=== PATIENT | female | born 2000 | race Caucasian/White ===

== ENCOUNTER 2023-02-16 15:02 | Emergency (ER) | payer OTHER, SELFPAY ==
[2023-02-16] VITALS (8 sets, daily range): BP systolic 112–133; BP diastolic 64–87; PULSE 66–76; RESP 16–23; TEMP 36.6; O2SAT 97–99; BMI 30.9
--- NOTE | 2023-02-16 15:23 | DI.RAD.S_ITS ---
PROCEDURE: XR CHEST 1V INDICATIONS: chest pain TECHNIQUE: One view of the chest was acquired. COMPARISON: None. FINDINGS: Surgical changes and devices: None. Lungs and pleura: Lungs are clear. No pleural effusions or pneumothorax. Mediastinum: Mediastinal contours appear normal. Heart size is normal. Bones and chest wall: No suspicious bony lesions. Overlying soft tissues appear unremarkable. IMPRESSION: No acute cardiopulmonary disease. Dictated by: Michelle Vanegas M.D. on 02/16/2023 at 16:36 Approved by: Michelle Vanegas M.D. on 02/16/2023 at 16:37
--- NOTE | 2023-02-16 15:56 | ED.CHESTPAIN ---
HPI - Chest Pain General Chief Complaint: Chest Pain Stated Complaint: chest pain (has pots) Time Seen by Provider: 02/16/23 15:30 Source: patient Mode of arrival: Ambulatory History of Present Illness HPI narrative: 22-year-old female admits to vaping and using marijuana with history of POTS states that she woke up with an elevated heart rate which is higher than her normal. It has been as high as the 120s, she is normally in the 60s or 70s and at most gets up into the 160s. She did have a near syncopal episode earlier when her HR was up to 160but did not hit her head. She has chest pain that comes and goes with a mind of its own, it is brief sharp and stabbing and LEs only a few minutes. She admits to being under increased stress lately therefore has not been sleeping as well as she would like to. Additionally she is been more active than normal and admits that she is had less oral intake than normal. She did drink some fluids on the way in ate salty foods knowing that this would likely help. Related Data Allergies Allergy/AdvReac Type Severity Reaction Status Date / Time No Known Drug Allergies Allergy Verified 02/16/23 15:17 Review of Systems Review of Systems Narrative: GENERAL: See HPI HEENT: Denies sinus pain, ear pain, sore throat, difficulty swallowing, dizziness. RESPIRATORY: Denies dyspnea, cough, wheezing, hemoptysis, sputum. CARDIOVASCULAR: See HPI GASTROINTESTINAL: Denies nausea, vomiting, abdominal pain, diarrhea, constipation, melena. : Denies dysuria, frequency, incontinence, hematuria, urinary retention. MUSCULOSKELETAL: denies weakness, joint pain, or bony pain SKIN: Denies rash, skin lesions, or other NEUROLOGIC: Denies weakness, headache, numbness, change in speech, confusion, seizures, incoordination. PSYCHIATRIC: No concerning psychosocial issues. 12 point review of systems is negative except for those stated above Patient History tobacco type: vaping Substance Use Type: marijuana Exam Narrative Exam Narrative: GENERAL: [22] year old patient appears stated age. Well-developed patient, in mild distress. HEAD: Atraumatic. Normocephalic. EYES: Pupils equal round and reactive. Extraocular motions intact. No scleral icterus. No injection or drainage. ENT: Nose without bleeding, purulent drainage. Throat without erythema, tonsillar hypertrophy or exudate. Airway patent. NECK: Trachea midline. Non tender CARDIOVASCULAR: Regular rate and rhythm without murmurs, gallops, or rubs. RESPIRATORY: Clear to auscultation. Breath sounds equal bilaterally. No wheezes, rales, or rhonchi. GASTROINTESTINAL: Abdomen soft, non-tender, nondistended. EXTREMITIES: No edema or joint tenderness. BACK: Nontender without deformity or crepitance. No flank tenderness. NEURO: AOx3. SKIN: No rash or erythema of visible areas Initial Vital Signs Initial Vital Signs: Vital Signs Temperature 97.9 F 02/16/23 15:17 Pulse Rate 66 02/16/23 15:17 Respiratory Rate 17 02/16/23 15:17 Blood Pressure 133/76 02/16/23 15:17 Pulse Oximetry 99 02/16/23 15:17 Oxygen Delivery Method Room Air 02/16/23 15:17 Course Orders Ordered: ED Orders 02/16/23 15:23 XR chest 1V Stat 02/16/23 15:31 EKG-12 Lead Stat 02/16/23 16:00 CRP [C-Reactive Protein Quant] Stat Complete Blood Count AUTO DIFF Stat Comprehensive Metabolic Panel Stat Lipase Stat Magnesium Stat PTT Partial Thromboplastin Tomas Stat Prothrombin Time INR Stat Troponin & CK Cardiac Panel Stat 02/16/23 17:35 D Dimer Stat ESR [Erythrocyte Sedimentation Rate] Stat Discontinued Medications Aspirin (Aspirin 81 Mg Chew Tab) 324 mg PO NOW ONE Stop: 02/16/23 15:24 Last Admin: 02/16/23 16:00 Dose: Not Given Documented By: NUPUR Sodium Chloride (Normal Saline 0.9%) 1,000 mls @ 1,000 mls/hr IV BOLUS ONE Stop: 02/16/23 17:00 Last Infusion: 02/16/23 17:16 Dose: 0 mls/hr Documented By: Admin: 02/16/23 16:04 Dose: 1,000 mls/hr Documented By: NUPUR Ketorolac Tromethamine (Ketorolac 30 Mg/Ml Vial) 15 mg IV NOW ONE Stop: 02/16/23 16:56 Last Admin: 02/16/23 17:01 Dose: 15 mg Documented By: PRASHANTH Vital Signs Vital signs: Vital Signs - 8 hr 02/16/23 15:17 02/16/23 15:36 02/16/23 15:43 Temperature 97.9 F Pulse Rate 66 76 70 Respiratory Rate 17 16 21 Blood Pressure 133/76 Pulse Oximetry 99 97 Oxygen Delivery Method Room Air 02/16/23 15:43 02/16/23 16:00 02/16/23 16:00 Temperature Pulse Rate 70 Respiratory Rate 23 Blood Pressure 122/87 128/74 Pulse Oximetry 97 Oxygen Delivery Method 02/16/23 16:30 02/16/23 16:30 02/16/23 17:00 Temperature Pulse Rate 71 Respiratory Rate 22 Blood Pressure 125/75 112/64 Pulse Oximetry 98 Oxygen Delivery Method 02/16/23 17:00 02/16/23 17:30 02/16/23 18:00 Temperature Pulse Rate 70 66 74 Respiratory Rate 21 22 19 Blood Pressure Pulse Oximetry 98 98 98 Oxygen Delivery Method MDM - Chest Pain Lab Data 02/16/23 16:00 02/16/23 16:00 Labs: Lab Results 02/16/23 02/16/23 02/16/23 Range/Units 16:00 16:00 16:00 WBC 8.3 (4.5-11.0) X10^3/uL RBC 4.47 (4.0-5.2) X10^6/uL Hgb 12.9 (12.0-16.0) g/dL Hct 38.6 (36-46) % MCV 86.3 (80-100) fL MCH 28.9 (26-34) PG MCHC 33.5 (30-36) % RDW 13.7 (11.6-14.8) % Plt Count 227 (150-400) X10^3/uL Neut % (Auto) 65.9 (50-75) % Lymph % (Auto) 26.1 (25-40) % [place] % (Auto) 6.1 (3-14) % Eos % (Auto) 1.3 L (2-4) % Baso % (Auto) 0.6 (0-2) % Neut # (Auto) 5500 (4504-6995) /uL Lymph # (Auto) 2200 (8940-5687) /uL [place] # (Auto) 500 (0-900) /uL Eos # (Auto) 100 (0-450) /uL Baso # (Auto) 100 (0-100) /uL ESR (0-20) MM/HR PT 11.3 (10.1-12.7) SECONDS INR 1.0 (0.9-1.3) APTT 28 (26-36) SECONDS D-Dimer (<500) ng/ml Sodium 138 (137-145) mmol/L Potassium 4.3 (3.4-5.1) mmol/L Chloride 106 (98-107) mmol/L Carbon Dioxide 26 (22-32) mmol/L BUN 15 (7-17) mg/dL Creatinine 0.70 (0.52-1.04) mg/dL Estimated GFR > 60 (>60) mL/min BUN/Creatinine Ratio 21.4 (6-22) Glucose 94 (70-100) mg/dL Calcium 9.1 (8.4-10.2) mg/dL Magnesium 2.1 (1.6-2.3) mg/dL Total Bilirubin 0.2 (0.2-1.3) mg/dL AST 24 (14-36) IU/L ALT 19 (<35) IU/L Alkaline Phosphatase 43 (38-126) U/L Total Creatine Kinase 100 (30-135) U/L Troponin I < 0.012 (0.01-0.034) ng/mL C-Reactive Protein (<1.0) mg/dL Total Protein 7.5 (6.3-8.2) g/dL Albumin 4.6 (3.5-5.0) g/dL Globulin 2.9 (1.7-4.1) g/dL Albumin/Globulin Ratio 1.6 (1.0-2.8) Lipase 113 (23-300) U/L 02/16/23 02/16/23 02/16/23 Range/Units 16:00 17:35 17:35 WBC (4.5-11.0) X10^3/uL RBC (4.0-5.2) X10^6/uL Hgb (12.0-16.0) g/dL Hct (36-46) % MCV (80-100) fL MCH (26-34) PG MCHC (30-36) % RDW (11.6-14.8) % Plt Count (150-400) X10^3/uL Neut % (Auto) (50-75) % Lymph % (Auto) (25-40) % [place] % (Auto) (3-14) % Eos % (Auto) (2-4) % Baso % (Auto) (0-2) % Neut # (Auto) (1172-6557) /uL Lymph # (Auto) (3631-1635) /uL [place] # (Auto) (0-900) /uL Eos # (Auto) (0-450) /uL Baso # (Auto) (0-100) /uL ESR 3 (0-20) MM/HR PT (10.1-12.7) SECONDS INR (0.9-1.3) APTT (26-36) SECONDS D-Dimer 215 (<500) ng/ml Sodium (137-145) mmol/L Potassium (3.4-5.1) mmol/L Chloride (98-107) mmol/L Carbon Dioxide (22-32) mmol/L BUN (7-17) mg/dL Creatinine (0.52-1.04) mg/dL Estimated GFR (>60) mL/min BUN/Creatinine Ratio (6-22) Glucose (70-100) mg/dL Calcium (8.4-10.2) mg/dL Magnesium (1.6-2.3) mg/dL Total Bilirubin (0.2-1.3) mg/dL AST (14-36) IU/L ALT (<35) IU/L Alkaline Phosphatase (38-126) U/L Total Creatine Kinase (30-135) U/L Troponin I (0.01-0.034) ng/mL C-Reactive Protein < 0.5 (<1.0) mg/dL Total Protein (6.3-8.2) g/dL Albumin (3.5-5.0) g/dL Globulin (1.7-4.1) g/dL Albumin/Globulin Ratio (1.0-2.8) Lipase (23-300) U/L Point of Care Testing Test Results Negative Urine Dip Bedside Urine Glucose Negative Bedside Urine Bilirubin - Negative Bedside Urine Ketone - Negative Urine Specific [place] 1.000 Bedside Urine Occult Blood - Negative Bedside Urine pH 7.0 Bedside Urine Protein - Negative Bedside Urine Urobilinogen - Negative Bedside Urine Nitrite - Negative Bedside Urine Leukocytes - Negative Esterase ECG Data Interpretation: [time] EKG is normal sinus rhythm rate [ 70] and free of any signs of ischemia or ectopy. No ST segmental elevation or depression. No T wave inversions MDM Narrative Medical decision making narrative: CC: 22-year-old female with Villegas presents with a rapid heart rate upon waking today and a few episodes of sharp and stabbing chest pain Complicating co-morbidities: Factor 5 [place], pots Data collected from: Patient Medical records reviewed: Prior notes reviewed in our EMR Differential considered, but not limited to: Cardiac ischemia versus pulmonary embolism versus tachyarrhythmia versus dehydration versus other Exam documented above, pertinent findings include: Heart rate regular, lungs clear, no reproducible pain Lab Test results independently reviewed as above. Pertinent findings: No leukocytosis or anemia, electrolytes within normal limit, troponin negative and D-dimer below cutoff Independently reviewed EKG as above Imaging studies independently reviewed: Chest x-ray demonstrates no acute process Discussion: 22-year-old female awoke with rapid heart rate that resolved over the course of the day. She is had a few episodes of sharp and stabbing chest pain without obvious provocation or palliation, no exertional symptoms, nonocclusive EKG and negative troponin. D-dimer ordered to rule out pulmonary embolism given her history of factor 5 and tachycardia, thankfully does below the cutoff and no CTA is needed. It seems likely that her symptoms are multifactorial. She admits to increased stress lately which is [place] to poor appetite and oral intake, relative dehydration, poor sleep. Symptoms improved after above-stated therapies. Return precautions discussed and questions answered to her apparent satisfaction Disposition: see below, along with detailed discharge instructions that have been reviewed with patient as well as indications for ED re-evaluation and additional outpatient follow up Discharge Plan Departure Patient Disposition: Home Clinical Impression: POTS (postural orthostatic tachycardia syndrome), Atypical chest pain Instructions: DI for Atypical Chest Pain Activity Restrictions/Additional Instructions: *You have been diagnosed with [ atypical chest pain. As we discussed your history and physical exam are reassuring as our your labs. There is no sign of heart attack, blood clot or significant electrolyte abnormality. As we discussed your symptoms could very well have been triggered by some recent increased stress, less sleep than normal and perhaps some relative dehydration. I am glad you are feeling better now] *What to do: *Please continue to take your regular medications as directed. [ ] New medication prescriptions sent to your pharmacy: [ ] [ ] New medication written as a paper prescription [ ] No new medications given *Please follow up with your primary care provider in 2-3 days, call for an appointment. Let them know you were seen in the Emergency Department and that we ask that you be seen in follow up. We will electronically transmit a record of today's note if your PCP is in our system Return to Emergency Department if you should have any new, worsening or concerning symptoms, such as [fever greater than 101 F, shaking chills, worsening pain, persistent vomiting or other bothersome symptoms] Referrals: Cherelle George MD [Primary Care Provider] - Stand Alone Forms: Patient Portal/API
[2023-02-16] MEDS: SODIUM CHLORIDE 0.9% 1,000 ML 1000 ML IV (16:04)
--- NOTE | 2023-02-16 16:04 | PC.NURSE ---
Patient states she is dehydrated and had been feeling nauseous this morning so did not drink enough water. She reports her heart rate was 120 while standing and 160bpm with exertion before coming. I stood the patient up at the bedside and her heart rate remained steady at 73bPM with mild rise to 80's momentarily. No active chest pain. Reports mild dizziness. She states the drank a bunch of water and ate some saltines before coming and feels improved. Requests IV fluids. Verbal order from Dr. Chavarria for 1L normal saline.
[2023-02-16 16:08] LABS: Add Manual Diff / Slide Review NO; Basophils Absolute Auto 100 /uL (0-100); Basophils Percent Auto 0.6 % (0-2); Eosinophils Absolute Auto 100 /uL (0-450); Eosinophils Percent Auto 1.3 % (2-4); Hematocrit 38.6 % (36-46); Hemoglobin 12.9 g/dL (12.0-16.0); Lymphocytes Absolute Auto 2200 /uL (1100-4500); Lymphocytes Percent Auto 26.1 % (25-40); Mean Corpuscular HGB Conc 33.5 % (30-36); Mean Corpuscular Hemoglobin 28.9 PG (26-34); Mean Corpuscular Volume 86.3 fL (80-100); Monocytes Absolute Auto 500 /uL (0-900); Monocytes Percent Auto 6.1 % (3-14); Neutrophils Absolute Auto 5500 /uL (1500-7000); Neutrophils Percent Auto 65.9 % (50-75); Platelet Count 227 X10^3/uL (150-400); Red Blood Cell Count 4.47 X10^6/uL (4.0-5.2); Red Cell Distribution Width 13.7 % (11.6-14.8); White Blood Cell Count 8.3 X10^3/uL (4.5-11.0)
[2023-02-16 16:12] LABS: Prothrombin Time 11.3 SECONDS (10.1-12.7)
[2023-02-16 16:15] LABS: PTT Partial Thromboplastin Tim 28 SECONDS (26-36)
[2023-02-16 16:17] LABS: Alanine Aminotransferase 19 IU/L (<35); Albumin 4.6 g/dL (3.5-5.0); Albumin Globulin Ratio 1.6 (1.0-2.8); Alkaline Phosphatase 43 U/L (38-126); Aspartate Aminotransferase 24 IU/L (14-36); BUN Creatinine Ratio 21.4 (6-22); Bilirubin Total 0.2 mg/dL (0.2-1.3); Blood Urea Nitrogen 15 mg/dL (7-17); Calcium 9.1 mg/dL (8.4-10.2); Carbon Dioxide 26 mmol/L (22-32); Chloride 106 mmol/L (98-107); Creatine Kinase 100 U/L (30-135); Estimated Glomerular Filt Rate > 60 mL/min (>60); Globulin 2.9 g/dL (1.7-4.1); Glucose 94 mg/dL (70-100); HEMOLYSIS < 15 (0-50); Lipase 113 U/L (23-300); Magnesium 2.1 mg/dL (1.6-2.3); Potassium 4.3 mmol/L (3.4-5.1); Sodium 138 mmol/L (137-145); Total Protein 7.5 g/dL (6.3-8.2)
[2023-02-16 16:30] LABS: Troponin I < 0.012 ng/mL (0.01-0.034)
[2023-02-16] MEDS: KETOROLAC 30 MG/ML VIAL 15 MG IV (17:01)
--- NOTE | 2023-02-16 17:19 | PC.NURSE ---
Pt used call light to inform us that her chest pain returned along with a headache. RT was called for a repeat EKG, patients HR on the monitor was 74, sinus rhythm. Provider informed and patient received pain medications. 10 minutes later patient states her chest pain is gone after ambulating to the bathroom. Headache persists but is less than initial onset. Lights were dimmed and patient resting in bed. [facility]
[2023-02-16 17:38] LABS: C-Reactive Protein Quant < 0.5 mg/dL (<1.0)
[2023-02-16 17:56] LABS: D Dimer 215 ng/ml (<500)
--- NOTE | 2023-02-16 18:13 | PC.NURSE ---
Denies dizziness while ambulating states she feels much better after the fluids.
[2023-02-16 18:16] LABS: Erythrocyte Sedimentation Rate 3 MM/HR (0-20)
== END 2023-02-16 18:14 | disposition home or self-care (01) ==
PROVIDERS: Emergency Provider Emergency Medicine; PCP Family Medicine
DX: G90.A Postural orthostatic tachycardia syndrome [POTS] (principal); R07.89 Other chest pain; R55 Syncope and collapse
CPT/HCPCS: 36415; 71045; 80053; 81003; 81025; 82550; 83690; 83735; 84484; 85025; 85379; 85610; 85651; 85730; 86140; 93005; 93010; 96374; 99284; J1885

== ENCOUNTER 2023-02-18 22:42 | Emergency (ER) | payer OTHER, SELFPAY ==
[2023-02-18 22:55] VITALS: BP 128/76; PULSE 79; RESP 16; O2SAT 98; BMI 30.9
[2023-02-18 23:23] LABS: Add Manual Diff / Slide Review NO; Basophils Absolute Auto 100 /uL (0-100); Basophils Percent Auto 0.6 % (0-2); Eosinophils Absolute Auto 100 /uL (0-450); Eosinophils Percent Auto 0.8 % (2-4); Hematocrit 38.2 % (36-46); Lymphocytes Absolute Auto 2800 /uL (1100-4500); Lymphocytes Percent Auto 25.9 % (25-40); Mean Corpuscular Volume 85.3 fL (80-100); Monocytes Absolute Auto 600 /uL (0-900); Monocytes Percent Auto 5.6 % (3-14); Neutrophils Absolute Auto 7300 /uL (1500-7000); Neutrophils Percent Auto 67.1 % (50-75); Platelet Count 240 X10^3/uL (150-400); Red Blood Cell Count 4.47 X10^6/uL (4.0-5.2); Red Cell Distribution Width 13.7 % (11.6-14.8); White Blood Cell Count 10.9 X10^3/uL (4.5-11.0)
[2023-02-18 23:33] LABS: Alanine Aminotransferase 20 IU/L (<35); Albumin 4.9 g/dL (3.5-5.0); Albumin Globulin Ratio 1.5 (1.0-2.8); Alkaline Phosphatase 47 U/L (38-126); Aspartate Aminotransferase 28 IU/L (14-36); BUN Creatinine Ratio 18.3 (6-22); Bilirubin Total 0.3 mg/dL (0.2-1.3); Blood Urea Nitrogen 17 mg/dL (7-17); Calcium 9.4 mg/dL (8.4-10.2); Carbon Dioxide 24 mmol/L (22-32); Chloride 105 mmol/L (98-107); Estimated Glomerular Filt Rate > 60 mL/min (>60); Globulin 3.2 g/dL (1.7-4.1); Glucose 90 mg/dL (70-100); HEMOLYSIS < 15 (0-50); Lipase 98 U/L (23-300); Potassium 4.1 mmol/L (3.4-5.1); Sodium 138 mmol/L (137-145); Total Protein 8.1 g/dL (6.3-8.2)
[2023-02-19] MEDS: ONDANSETRON 4 MG/2 ML INJ IV (01:04)
--- NOTE | 2023-02-19 01:06 | ED.NAVMDI ---
HPI - Nausea/Vomiting/Diarrhea General Chief complaint: Nausea/Vomiting/Diarrhea Stated complaint: states vomiting blood Time Seen by Provider: 02/19/23 01:05 Source: patient Mode of arrival: Ambulatory History of Present Illness HPI Narrative: 22-year-old woman with a history of possible POTS syndrome, prior history of PANDAS awoke feeling ?crummy? this morning decreased appetite. She had an episode of diarrhea and at 6:00 p.m. and episode of vomiting. She does have recurrent episodes of strep throat. She describes no fevers but has been chilly and sweaty throughout the day. She has some mild epigastric pain no lower abdominal tenderness. Notes occasional tightness through her chest particularly after emesis. Related Data Previous Rx's Medication Instructions Recorded ondansetron 4 mg disintegrating 4 mg PO Q8H PRN nausea and 02/19/23 tablet vomiting #20 tabs Allergies Allergy/AdvReac Type Severity Reaction Status Date / Time No Known Drug Allergies Allergy Verified 02/16/23 15:17 Review of Systems Review of Systems Narrative: Pertinent positive and negative findings as per HPI Patient History Social History Smoking Status: Current every day smoker Smoking Status: Current every day smoker tobacco type: cigarettes and vaping Substance Use Type: marijuana Exam Initial Vital Signs Initial Vital Signs: Vital Signs Pulse Rate 79 02/18/23 22:55 Respiratory Rate 16 02/18/23 22:55 Blood Pressure 128/76 02/18/23 22:55 Pulse Oximetry 98 02/18/23 22:55 Oxygen Delivery Method Room Air 02/18/23 22:55 General: Healthy appearing, in no acute distress but does appear moderately uncomfortable. Able to give a complete and coherent history. Well-nourished well-developed HEENT: Moist mucous membranes, normal sclera with reactive pupils, tonsils are inflamed with mild excoriation and bleeding but no overt exudate Neck: No cervical adenopathy, supple Respiratory: Lungs are clear to auscultation, no wheezing no rales no rhonchi. Full and symmetrical air movement Cardiac: Regular rate and rhythm no murmurs no bruits Abdomen: Soft, mild midepigastric tenderness without rebound or guarding, good bowel tones, no flank pain Skin: Warm and dry, no rashes Neurologic: Grossly neurologically intact with no obvious asymmetries or abnormalities Extremities: No trauma, well perfused Psych: Cooperative, appropriate insight and affect Course Orders Ordered: ED Orders 02/18/23 23:13 Complete Blood Count AUTO DIFF Stat Comprehensive Metabolic Panel Stat Lipase Stat 02/19/23 01:30 Strep Grp A by PCR Rapid Stat Ondansetron HCl (Ondansetron 4 Mg Odt) 4 mg PO NOW PRN PRN Reason: Nausea And Vomiting Ondansetron HCl (Ondansetron 4 Mg/2 Ml Inj) 4 mg IV NOW PRN PRN Reason: Nausea And Vomiting Last Admin: 02/19/23 01:04 Dose: 4 mg Documented By: LINNEA Discontinued Medications Sodium Chloride (Normal Saline 0.9%) 1,000 mls @ 1,000 mls/hr IV BOLUS ONE Stop: 02/19/23 02:04 Last Infusion: 02/19/23 02:29 Dose: 0 mls/hr Documented By: Admin: 02/19/23 01:36 Dose: 1,000 mls/hr Documented By: JAEL Vital Signs Vital signs: Vital Signs - 8 hr 02/18/23 22:55 02/19/23 01:22 02/19/23 01:22 Pulse Rate 79 72 Respiratory Rate 16 Blood Pressure 128/76 129/72 Pulse Oximetry 98 97 Oxygen Delivery Method Room Air Room Air 02/19/23 01:30 02/19/23 01:30 02/19/23 02:00 Pulse Rate 64 Respiratory Rate Blood Pressure 126/60 115/59 L Pulse Oximetry 99 Oxygen Delivery Method Room Air 02/19/23 02:00 Pulse Rate 55 L Respiratory Rate Blood Pressure Pulse Oximetry 97 Oxygen Delivery Method Room Air MDM - Nausea/Vomiting/Diarrhea Lab Data 02/18/23 23:13 02/18/23 23:13 Labs: Lab Results 02/18/23 02/18/23 02/19/23 Range/Units 23:13 23:13 01:30 WBC 10.9 (4.5-11.0) X10^3/uL RBC 4.47 (4.0-5.2) X10^6/uL Hgb 13.0 (12.0-16.0) g/dL Hct 38.2 (36-46) % MCV 85.3 (80-100) fL MCH 29.0 (26-34) PG MCHC 34.0 (30-36) % RDW 13.7 (11.6-14.8) % Plt Count 240 (150-400) X10^3/uL Neut % (Auto) 67.1 (50-75) % Lymph % (Auto) 25.9 (25-40) % [place] % (Auto) 5.6 (3-14) % Eos % (Auto) 0.8 L (2-4) % Baso % (Auto) 0.6 (0-2) % Neut # (Auto) 7300 H (7966-3956) /uL Lymph # (Auto) 2800 (6052-5227) /uL [place] # (Auto) 600 (0-900) /uL Eos # (Auto) 100 (0-450) /uL Baso # (Auto) 100 (0-100) /uL Sodium 138 (137-145) mmol/L Potassium 4.1 (3.4-5.1) mmol/L Chloride 105 (98-107) mmol/L Carbon Dioxide 24 (22-32) mmol/L BUN 17 (7-17) mg/dL Creatinine 0.93 (0.52-1.04) mg/dL Estimated GFR > 60 (>60) mL/min BUN/Creatinine Ratio 18.3 (6-22) Glucose 90 (70-100) mg/dL Calcium 9.4 (8.4-10.2) mg/dL Total Bilirubin 0.3 (0.2-1.3) mg/dL AST 28 (14-36) IU/L ALT 20 (<35) IU/L Alkaline Phosphatase 47 (38-126) U/L Total Protein 8.1 (6.3-8.2) g/dL Albumin 4.9 (3.5-5.0) g/dL Globulin 3.2 (1.7-4.1) g/dL Albumin/Globulin Ratio 1.5 (1.0-2.8) Lipase 98 (23-300) U/L Group A Strep (PCR) Negative (Negative) Point of Care Testing Test Results Negative Urine Dip Bedside Urine Glucose Negative Bedside Urine Bilirubin - Negative Bedside Urine Ketone - Negative Urine Specific [place] 1.030 Bedside Urine Occult Blood - Negative Bedside Urine pH 6.0 Bedside Urine Protein - Negative Bedside Urine Urobilinogen - Negative Bedside Urine Nitrite - Negative Bedside Urine Leukocytes - Negative Esterase MDM Narrative Medical decision making narrative: CC: Vomiting and diarrhea Complicating co-morbidities: Possible POTS diagnosis, PTSD, prior PANDAS, recurrent strep throat Data collected from: patient, Social determinants of health that may influence the patients condition: Medical records reviewed: She was seen and evaluated here on February 16 with atypical chest pain Differential considered: Viral syndrome, anxiety, gastritis. appendicitis, pelvic inflammatory disease, bowel obstruction all are felt to be less likely Exam documented above, pertinent findings include: Fairly benign exam, mild midepigastric pain Lab Test results independently reviewed as above. Pertinent findings: CBC is unremarkable Chemistries are reassuring Rapid strep is negative Urine test is negative Treatments: IV Zofran Discussion: 22-year-old woman with nausea vomiting and diarrhea. Unremarkable labs, unremarkable exam. Feeling better after Zofran and fluids. At this point there is no evidence of acute abdominal pathology, electrolyte abnormalities, kidney failure, strep throat or other infectious etiology. I suspect she has a viral gastroenteritis. Findings reviewed with her and she is safe for discharge home Discharge Plan Departure Patient Disposition: Home Clinical Impression: Nausea vomiting and diarrhea Instructions: DI for Viral Gastroenteritis -- Adult Activity Restrictions/Additional Instructions: Thank you for coming in tonight Your workup is quite reassuring. Your lab work and exam are benign. He do not have strep throat you are not . Responded nicely to fluids and Zofran. I suspect that you have a mild virus that is causing both vomiting and diarrhea. This should run its course. I have given you a prescription for Zofran to use to help control the nausea so that you can maintain hydration. If you find that you are getting worse or develop any new symptoms, please feel free to return to the emergency department for further evaluation. Prescriptions: New ondansetron 4 mg tablet,disintegrating 4 mg PO Q8H PRN (Reason: nausea and vomiting) Qty: 20 0RF Referrals: Cherelle George MD [Primary Care Provider] - Stand Alone Forms: Patient Portal/API
[2023-02-19 01:22] VITALS: BP 129/72; PULSE 72; O2SAT 97
[2023-02-19 01:30] VITALS: BP 126/60; PULSE 64; O2SAT 99
[2023-02-19] MEDS: SODIUM CHLORIDE 0.9% 1,000 ML 1000 ML IV (01:36)
[2023-02-19 01:44] LABS: Strep Grp A by PCR Rapid Negative (Negative)
[2023-02-19 02:00] VITALS: BP 115/59; PULSE 55; O2SAT 97
[2023-02-19 02:30] VITALS: BP 116/64; PULSE 68; O2SAT 99
[2023-02-19 03:00] VITALS: BP 113/66; PULSE 63; O2SAT 97
[2023-02-19 03:30] VITALS: BP 107/57; PULSE 68; O2SAT 95
== END 2023-02-19 04:10 | disposition home or self-care (01) ==
PROVIDERS: Emergency Provider Emergency Medicine; PCP Family Medicine
DX: R11.2 Nausea with vomiting, unspecified (principal); R19.7 Diarrhea, unspecified
CPT/HCPCS: 36415; 80053; 81003; 81025; 83690; 85025; 87651; 96361; 96374; 99284; J2405

== ENCOUNTER 2023-02-23 15:58 | Emergency (ER) | payer OTHER, SELFPAY ==
[2023-02-23 16:00] VITALS: BP 131/76; PULSE 90; RESP 18; TEMP 36.7; O2SAT 99; BMI 30.9
[2023-02-23] MEDS: ONDANSETRON 4 MG/2 ML INJ IV (16:21)
[2023-02-23 16:28] LABS: Add Manual Diff / Slide Review NO; Basophils Absolute Auto 0 /uL (0-100); Basophils Percent Auto 0.3 % (0-2); Eosinophils Absolute Auto 100 /uL (0-450); Eosinophils Percent Auto 1.6 % (2-4); Hematocrit 37.9 % (36-46); Lymphocytes Absolute Auto 1900 /uL (1100-4500); Lymphocytes Percent Auto 23.5 % (25-40); Mean Corpuscular HGB Conc 34.3 % (30-36); Mean Corpuscular Hemoglobin 29.4 PG (26-34); Mean Corpuscular Volume 85.7 fL (80-100); Monocytes Absolute Auto 600 /uL (0-900); Monocytes Percent Auto 7.3 % (3-14); Neutrophils Absolute Auto 5300 /uL (1500-7000); Neutrophils Percent Auto 67.3 % (50-75); Platelet Count 205 X10^3/uL (150-400); Red Blood Cell Count 4.42 X10^6/uL (4.0-5.2); Red Cell Distribution Width 13.6 % (11.6-14.8); White Blood Cell Count 7.9 X10^3/uL (4.5-11.0)
[2023-02-23 17:01] LABS: Alanine Aminotransferase 19 IU/L (<35); Albumin 4.5 g/dL (3.5-5.0); Albumin Globulin Ratio 1.5 (1.0-2.8); Alkaline Phosphatase 45 U/L (38-126); Aspartate Aminotransferase 24 IU/L (14-36); BUN Creatinine Ratio 25.4 (6-22); Bilirubin Total 0.2 mg/dL (0.2-1.3); Blood Urea Nitrogen 17 mg/dL (7-17); Calcium 8.7 mg/dL (8.4-10.2); Carbon Dioxide 25 mmol/L (22-32); Chloride 104 mmol/L (98-107); Estimated Glomerular Filt Rate > 60 mL/min (>60); Glucose 110 mg/dL (70-100); HEMOLYSIS 22 (0-50); Lipase 118 U/L (23-300); Potassium 4.1 mmol/L (3.4-5.1); Sodium 136 mmol/L (137-145); Total Protein 7.5 g/dL (6.3-8.2)
--- NOTE | 2023-02-23 18:04 | ED.ABDPAIN ---
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 Patient was seen in the ED last week, diagnosed with viral gastroenteritis, sent home with supportive care and prescription for Zofran. Patient states that she has been unable to fill her Zofran prescription due to her insurance issues. Patient states that she was getting better over the last week, however started feeling nauseous and was vomiting again from yesterday on. Patient endorses nausea, vomiting, continued diarrhea. Patient also complains of some abdominal cramping in the left upper quadrant and epigastric regions. Patient denies fever, chills, chest pain, shortness of breath, dysuria, lightheadedness, dizziness, syncope. Related Data Previous Rx's Medication Instructions Recorded ondansetron 4 mg disintegrating 4 mg PO Q8H PRN nausea and 02/19/23 tablet vomiting #20 tabs ondansetron 4 mg disintegrating 4 mg PO Q8H PRN nausea and 02/23/23 tablet vomiting #14 tabs Allergies Allergy/AdvReac Type Severity Reaction Status Date / Time No Known Drug Allergies Allergy Verified 02/23/23 16:04 Review of Systems <Tatiana Romero PA-C - Last Filed: 02/23/23 18:22> Review of Systems ROS Unobtainable: All systems reviewed & are unremarkable except as noted in HPI and below Constitutional Constitutional: Denies chills, Denies fatigue, Denies fever(s), Denies frequent falls, Denies lethargy and Denies weakness Eyes Eyes: Denies change in vision, Denies eye discharge, Denies irritation and Denies loss of vision ENT Ears, Nose, Mouth, and Throat: Denies change in voice, Denies dizziness, Denies neck pain, Denies sore throat and Denies throat swelling Cardiovascular Cardiovascular: Denies chest pain, Denies irregular heart rhythm, Denies lightheadedness, Denies palpitations, Denies dyspnea, Denies dyspnea on exertion and Denies orthopnea Respiratory Respiratory: Denies cough, Denies dyspnea, Denies dyspnea on exertion and Denies wheezing Gastrointestinal Gastrointestinal: Reports abdominal pain, Denies change in bowel habits, Reports diarrhea, Reports nausea and Reports vomiting Genitourinary Genitourinary: Denies hematuria, Denies flank pain, Denies urinary incontinence and Denies urinary urgency Musculoskeletal Musculoskeletal: Denies back pain, Denies muscle weakness, Denies neck pain, Denies numbness and Denies tingling Integumentary/Breasts Skin/Breast: Denies pruritus, Denies erythema, Denies rash and Denies wounds Neurologic Neurologic: Denies behavioral changes, Denies confusion, Denies dizziness, Denies frequent falls, Denies loss of vision, Denies numbness, Denies tingling and Denies weakness Psychiatric Psychiatric: Denies anxiety, Denies behavioral changes, Denies confusion, Denies depression, Denies homicidal ideation and Denies suicidal ideation Endocrine Endocrine: Denies fatigue, Denies flushing and Denies palpitations Hematologic/Lymphatic Hematologic/Lymphatic: Denies easy bruising Allergic/Immunologic Allergic/Immunologic: Denies urticaria, Denies throat swelling and Denies wheezing Patient History <Tatiana Romero PA-C - Last Filed: 02/23/23 18:22> Social History Smoking Status: Current every day smoker Smoking Status: Current every day smoker tobacco type: cigarettes and vaping Substance Use Type: marijuana Exam <Tatiana Romero PA-C - Last Filed: 02/23/23 18:22> Narrative Exam Narrative: Const General:?cooperative, healthy appearing and comfortable [facility] Head:?normal to inspection Ears:?hearing grossly normal bilaterally Nose:?external nose normal Face and sinus:?normal facial exam and sinuses nontender Mouth:?oral mucosae normal Throat:?posterior oropharynx normal Eyes General:?appearance normal, both eyes and all related structures Neck Neck:?normal visual inspection and no lymphadenopathy noted Resp Effort & Inspection:?normal respiratory effort Auscultation:?clear to auscultation bilaterally Cardio Rate:?regular rate Rhythm:?regular rhythm GI Abdomen is soft, nondistended, nontender to palpation. There is no CVA tenderness. Neuro General:?patient alert, patient awake and patient oriented x3 Initial Vital Signs Initial Vital Signs: Vital Signs Temperature 98.1 F 02/23/23 16:00 Pulse Rate 90 02/23/23 16:00 Respiratory Rate 18 02/23/23 16:00 Blood Pressure 131/76 02/23/23 16:00 Pulse Oximetry 99 02/23/23 16:00 Oxygen Delivery Method Room Air 02/23/23 16:00 <DO Eduardo Sosa Last Filed: 02/24/23 08:04> Initial Vital Signs Initial Vital Signs: Vital Signs Temperature 98.1 F 02/23/23 16:00 Pulse Rate 90 02/23/23 16:00 Respiratory Rate 18 02/23/23 16:00 Blood Pressure 131/76 02/23/23 16:00 Pulse Oximetry 99 02/23/23 16:00 Oxygen Delivery Method Room Air 02/23/23 16:00 Course <Tatiana Romero PA-C - Last Filed: 02/23/23 18:22> Orders Ordered: Discontinued Medications Ondansetron HCl (Ondansetron 4 Mg/2 Ml Inj) 4 mg IV NOW PRN PRN Reason: Nausea And Vomiting Last Admin: 02/23/23 16:21 Dose: 4 mg Documented By: JHONNY Vital Signs Vital signs: Vital Signs - 8 hr 02/23/23 16:00 Temperature 98.1 F Pulse Rate 90 Respiratory Rate 18 Blood Pressure 131/76 Pulse Oximetry 99 Oxygen Delivery Method Room Air <DO Eduardo Sosa Last Filed: 02/24/23 08:04> Orders Ordered: Discontinued Medications Ondansetron HCl (Ondansetron 4 Mg/2 Ml Inj) 4 mg IV NOW PRN PRN Reason: Nausea And Vomiting Last Admin: 02/23/23 16:21 Dose: 4 mg Documented By: JHONNY Vital Signs Vital signs: Vital Signs - 8 hr 02/23/23 16:00 Temperature 98.1 F Pulse Rate 90 Respiratory Rate 18 Blood Pressure 131/76 Pulse Oximetry 99 Oxygen Delivery Method Room Air MDM - Abdominal Pain <Tatiana Romero PA-C - Last Filed: 02/23/23 18:22> Lab Data 02/23/23 16:14 02/23/23 16:14 Labs: Lab Results 02/23/23 02/23/23 02/23/23 Range/Units 16:14 16:14 17:55 WBC 7.9 (4.5-11.0) X10^3/uL RBC 4.42 (4.0-5.2) X10^6/uL Hgb 13.0 (12.0-16.0) g/dL Hct 37.9 (36-46) % MCV 85.7 (80-100) fL MCH 29.4 (26-34) PG MCHC 34.3 (30-36) % RDW 13.6 (11.6-14.8) % Plt Count 205 (150-400) X10^3/uL Neut % (Auto) 67.3 (50-75) % Lymph % (Auto) 23.5 L (25-40) % [place] % (Auto) 7.3 (3-14) % Eos % (Auto) 1.6 L (2-4) % Baso % (Auto) 0.3 (0-2) % Neut # (Auto) 5300 (6663-5675) /uL Lymph # (Auto) 1900 (4095-5183) /uL [place] # (Auto) 600 (0-900) /uL Eos # (Auto) 100 (0-450) /uL Baso # (Auto) 0 (0-100) /uL Sodium 136 L (137-145) mmol/L Potassium 4.1 (3.4-5.1) mmol/L Chloride 104 (98-107) mmol/L Carbon Dioxide 25 (22-32) mmol/L BUN 17 (7-17) mg/dL Creatinine 0.67 (0.52-1.04) mg/dL Estimated GFR > 60 (>60) mL/min BUN/Creatinine Ratio 25.4 H (6-22) Glucose 110 H (70-100) mg/dL Calcium 8.7 (8.4-10.2) mg/dL Total Bilirubin 0.2 (0.2-1.3) mg/dL AST 24 (14-36) IU/L ALT 19 (<35) IU/L Alkaline Phosphatase 45 (38-126) U/L Total Protein 7.5 (6.3-8.2) g/dL Albumin 4.5 (3.5-5.0) g/dL Globulin 3.0 (1.7-4.1) g/dL Albumin/Globulin Ratio 1.5 (1.0-2.8) Lipase 118 (23-300) U/L Urine RBC None seen (0-5/HPF) Urine WBC None seen (0-5/HPF) Ur Squamous Epith Cells 1-5 /hpf (0-5/HPF) Urine Bacteria Few (2-10) H (None) Point of care testing: Point of Care Testing Test Results Negative Urine Dip Bedside Urine Glucose Negative Bedside Urine Bilirubin - Negative Bedside Urine Ketone - Negative Urine Specific [place] 1.000 Bedside Urine Occult Blood +++ Bedside Urine pH 7.0 Bedside Urine Protein - Negative Bedside Urine Urobilinogen - Negative Bedside Urine Nitrite - Negative Bedside Urine Leukocytes - Negative Esterase MDM Narrative Medical decision making narrative: 22-year-old female with past medical history pots syndrome presents to the ED with nausea, vomiting, diarrhea for 1 week. Physical exam is reassuring for a benign abdomen. Patient's symptoms are likely due to the viral gastroenteritis. Patient's nausea was well controlled with Zofran in the ED. will give patient a written prescription that she can take to a pharmacy that will be able to dispense the medication for her. Recommend supportive care with continued good hydration, BRAT diet. ED return precautions were discussed with patient. Patient verbalized understanding. Medical records reviewed: Yes <Lyssa Platt, - Last Filed: 02/24/23 08:04> Lab Data Labs: Lab Results 02/23/23 02/23/23 02/23/23 Range/Units 16:14 16:14 17:55 WBC 7.9 (4.5-11.0) X10^3/uL RBC 4.42 (4.0-5.2) X10^6/uL Hgb 13.0 (12.0-16.0) g/dL Hct 37.9 (36-46) % MCV 85.7 (80-100) fL MCH 29.4 (26-34) PG MCHC 34.3 (30-36) % RDW 13.6 (11.6-14.8) % Plt Count 205 (150-400) X10^3/uL Neut % (Auto) 67.3 (50-75) % Lymph % (Auto) 23.5 L (25-40) % [place] % (Auto) 7.3 (3-14) % Eos % (Auto) 1.6 L (2-4) % Baso % (Auto) 0.3 (0-2) % Neut # (Auto) 5300 (5050-4457) /uL Lymph # (Auto) 1900 (7114-8695) /uL [place] # (Auto) 600 (0-900) /uL Eos # (Auto) 100 (0-450) /uL Baso # (Auto) 0 (0-100) /uL Sodium 136 L (137-145) mmol/L Potassium 4.1 (3.4-5.1) mmol/L Chloride 104 (98-107) mmol/L Carbon Dioxide 25 (22-32) mmol/L BUN 17 (7-17) mg/dL Creatinine 0.67 (0.52-1.04) mg/dL Estimated GFR > 60 (>60) mL/min BUN/Creatinine Ratio 25.4 H (6-22) Glucose 110 H (70-100) mg/dL Calcium 8.7 (8.4-10.2) mg/dL Total Bilirubin 0.2 (0.2-1.3) mg/dL AST 24 (14-36) IU/L ALT 19 (<35) IU/L Alkaline Phosphatase 45 (38-126) U/L Total Protein 7.5 (6.3-8.2) g/dL Albumin 4.5 (3.5-5.0) g/dL Globulin 3.0 (1.7-4.1) g/dL Albumin/Globulin Ratio 1.5 (1.0-2.8) Lipase 118 (23-300) U/L Urine RBC None seen (0-5/HPF) Urine WBC None seen (0-5/HPF) Ur Squamous Epith Cells 1-5 /hpf (0-5/HPF) Urine Bacteria Few (2-10) H (None) Point of care testing: Point of Care Testing Test Results Negative Urine Dip Bedside Urine Glucose Negative Bedside Urine Bilirubin - Negative Bedside Urine Ketone - Negative Urine Specific [place] 1.000 Bedside Urine Occult Blood +++ Bedside Urine pH 7.0 Bedside Urine Protein - Negative Bedside Urine Urobilinogen - Negative Bedside Urine Nitrite - Negative Bedside Urine Leukocytes - Negative Esterase Discharge Plan Departure Patient Disposition: Home Clinical Impression: Gastroenteritis Instructions: DI for Viral Gastroenteritis -- Adult Activity Restrictions/Additional Instructions: You were evaluated in the ED today for nausea, vomiting. Your symptoms are likely due to the viral gastroenteritis. Your symptoms are well controlled with Zofran in the ED. You are being prescribed Zofran for continued use over the next few days. Please continue to stay well hydrated, followed the BRAT diet which consists of bananas, rice, apples, toast. Return to the ED if you are persistently vomiting, are unable to keep down solids and liquids. Prescriptions: New ondansetron 4 mg tablet,disintegrating 4 mg PO Q8H PRN (Reason: nausea and vomiting) Qty: 14 0RF No Action ondansetron 4 mg tablet,disintegrating 4 mg PO Q8H PRN (Reason: nausea and vomiting) Qty: 20 0RF Referrals: Cherelle George MD [Primary Care Provider] - Stand Alone Forms: Patient Portal/API <Lyssa Platt DO - Last Filed: 02/24/23 08:04> Cosign ED Attending Ross Attestation: I was immediately available in the department for consultation. Documentation has been reviewed.
[2023-02-23 18:19] VITALS: BP 128/72; PULSE 88; RESP 14; O2SAT 98
[2023-02-23 18:39] LABS: Bacteria Urine Few (2-10); RBC Urine None Seen (0-5/HPF); Squamous Epithelial Cell Urine 1-5 /HPF (0-5/HPF); WBC Urine None Seen (0-5/HPF)
== END 2023-02-23 18:22 | disposition home or self-care (01) ==
PROVIDERS: Emergency Medicine; Emergency Provider Student in an Organized Health Care Education/Training Program; PCP Family Medicine
DX: K52.9 Noninfective gastroenteritis and colitis, unspecified (principal)
CPT/HCPCS: 36415; 80053; 81003; 81015; 81025; 83690; 85025; 87086; 96374; 99284; J2405

== ENCOUNTER 2023-02-25 15:38 | Emergency (ER) | payer OTHER, SELFPAY ==
[2023-02-25 16:08] VITALS: BP 143/90; PULSE 82; RESP 18; TEMP 37.3; O2SAT 99; BMI 35.9
--- NOTE | 2023-02-25 16:40 | PC.NURSE ---
Pt passed out in the lobby,pt brought to triage room. Iv started,EKG done and zofran given. Pt has hx POTS
[2023-02-25 16:45] VITALS: BP 151/73; PULSE 76; O2SAT 99
[2023-02-25] MEDS: ONDANSETRON 4 MG/2 ML INJ IV ×2 (16:47→20:48)
[2023-02-25 17:05] LABS: Add Manual Diff / Slide Review NO; Basophils Absolute Auto 100 /uL (0-100); Basophils Percent Auto 0.6 % (0-2); Eosinophils Absolute Auto 100 /uL (0-450); Eosinophils Percent Auto 1.2 % (2-4); Hematocrit 38.4 % (36-46); Lymphocytes Absolute Auto 2000 /uL (1100-4500); Lymphocytes Percent Auto 23.2 % (25-40); Mean Corpuscular Hemoglobin 29.1 PG (26-34); Mean Corpuscular Volume 85.6 fL (80-100); Monocytes Absolute Auto 500 /uL (0-900); Neutrophils Absolute Auto 5800 /uL (1500-7000); Platelet Count 208 X10^3/uL (150-400); Red Blood Cell Count 4.48 X10^6/uL (4.0-5.2); White Blood Cell Count 8.4 X10^3/uL (4.5-11.0)
[2023-02-25] MEDS: SODIUM CHLORIDE 0.9% 1,000 ML 1000 ML IV (17:05)
[2023-02-25 17:24] LABS: Alanine Aminotransferase 20 IU/L (<35); Albumin 4.9 g/dL (3.5-5.0); Albumin Globulin Ratio 1.5 (1.0-2.8); Alkaline Phosphatase 44 U/L (38-126); Aspartate Aminotransferase 34 IU/L (14-36); BUN Creatinine Ratio 14.8 (6-22); Bilirubin Total 0.5 mg/dL (0.2-1.3); Blood Urea Nitrogen 9 mg/dL (7-17); Calcium 9.1 mg/dL (8.4-10.2); Carbon Dioxide 23 mmol/L (22-32); Chloride 104 mmol/L (98-107); Estimated Glomerular Filt Rate > 60 mL/min (>60); Globulin 3.2 g/dL (1.7-4.1); Glucose 88 mg/dL (70-100); Lipase 86 U/L (23-300); Potassium 4.2 mmol/L (3.4-5.1); Sodium 137 mmol/L (137-145); Total Protein 8.1 g/dL (6.3-8.2)
[2023-02-25 17:32] LABS: HEMOLYSIS 79 (0-50)
[2023-02-25 17:37] VITALS: BP 124/76; PULSE 84; RESP 18; O2SAT 99
[2023-02-25 18:27] LABS: Bacteria Urine None Seen; RBC Urine None Seen (0-5/HPF); Squamous Epithelial Cell Urine 0-1 /HPF (0-5/HPF); WBC Urine 0-1/HPF (0-5/HPF)
[2023-02-25 19:56] LABS: Adenovirus F 40/41 Not Detected (Not Detect); Astrovirus Not Detected (Not Detect); Campylobacter Not Detected (Not Detect); Clostridium difficile toxin AB Not Detected (Not Detect); Cryptosporidium Not Detected (Not Detect); Cyclospora cayetanensis Not Detected (Not Detect); Entamoeba histolytica Not Detected (Not Detect); Enteroaggregative E.coli Not Detected (Not Detect); Enteropathogenic E.coli Not Detected (Not Detect); Enterotoxigenic E.coli It/st Not Detected (Not Detect); Giardia lamblia Not Detected (Not Detect); Norovirus GI/GII Not Detected (Not Detect); Plesiomonsa shigelloides Not Detected (Not Detect); Rotavirus A Not Detected (Not Detect); Salmonella Not Detected (Not Detect); Sapovirus Not Detected (Not Detect); Shiga-like toxin-prod E.coli Not Detected (Not Detect); Shigella/Enteroinvasive E.coli Not Detected (Not Detect); Vibrio Not Detected (Not Detect); Vibrio cholerae Not Detected (Not Detect); Yersinia enterocolitica Not Detected (Not Detect)
--- NOTE | 2023-02-25 21:47 | PC.NURSE ---
Addendum entered by Danita Gaines R.N. 02/25/23 21:48: Late entry. Occurred at 2047 Original Note: Patient having multiple episodes of dry heaves. Unable to bring up much. Reports feels like her abd is having spasms
[2023-02-25] MEDS: MORPHINE 4 MG/ML INJ IV (22:15)
--- NOTE | 2023-02-25 22:23 | ED_ITS ---
HPI - Abdominal Pain General Chief Complaint: Abdominal Pain Stated Complaint: V/chest pain/blood in vomit Time Seen by Provider: 02/25/23 18:15 Source: patient Mode of arrival: Ambulatory History of Present Illness HPI narrative: Patient is a 22-year-old history of pots syndrome and PANDA, presents for the 4th time to the ER since February 16 3 of those visits have now been for nausea vomiting diarrhea. She is been given multiple prescriptions of Zofran to take at home. She has had vomiting diarrhea ongoing for the last 11 days. She has some left upper quadrant pain no guarding or rebound. She reports that she is not been able to keep down her psych med she also decided to quit nicotine at the same time. She almost passed out in the waiting room. She reports that today she really has not been able to keep any liquids down. She denies fever or chills. She reports that her roommate had similar symptoms but only lasted for 48 hours. After a L fluid and blood work she is awake alert oriented without any acute distress at the moment. Related Data Previous Rx's Medication Instructions Recorded ondansetron 4 mg disintegrating 4 mg PO Q8H PRN nausea and 02/19/23 tablet vomiting #20 tabs ondansetron 4 mg disintegrating 4 mg PO Q8H PRN nausea and 02/23/23 tablet vomiting #14 tabs ondansetron 4 mg disintegrating 4 mg PO Q8H PRN nausea and 02/25/23 tablet vomiting #10 tabs promethazine 25 mg rectal 25 mg WI Q6H PRN nausea and 02/25/23 suppository vomiting #12 ea Allergies Allergy/AdvReac Type Severity Reaction Status Date / Time No Known Drug Allergies Allergy Verified 02/23/23 16:04 Review of Systems Review of Systems ROS Unobtainable: All systems reviewed & are unremarkable except as noted in HPI and below Patient History Social History Smoking Status: Current every day smoker Smoking Status: Current every day smoker tobacco type: cigarettes and vaping Substance Use Type: marijuana Exam Initial Vital Signs Initial Vital Signs: Vital Signs Temperature 99.2 F 02/25/23 16:08 Pulse Rate 82 02/25/23 16:08 Respiratory Rate 18 02/25/23 16:08 Blood Pressure 143/90 H 02/25/23 16:08 Pulse Oximetry 99 02/25/23 16:08 Oxygen Delivery Method Room Air 02/25/23 16:08 GENERAL: Alert pleasant year old female and in no acute distress. HEENT: Head atraumatic,EOMI, pupils reactive, face symmetric, moist mucous membranes CARDIOVASCULAR: Regular rate and rhythm without murmurs, rubs or gallops. RESPIRATORY: Breath sounds equal bilaterally, no wheezes rales or rhonchi. ABDOMEN: Soft, mild left upper quadrant pain no guarding no rebound EXTREMITIES: Normal range of motion, no clubbing or edema. Neurovascularly intact NEUROLOGICAL: Alert and oriented x4. SKIN: Warm, dry, no laceration, no petechiae, no rashes or lesions. Course Orders Ordered: Discontinued Medications Sodium Chloride (Normal Saline 0.9%) 1,000 mls @ 1,000 mls/hr IV BOLUS ONE Stop: 02/25/23 17:57 Last Infusion: 02/25/23 18:43 Dose: 0 mls/hr Documented By: Admin: 02/25/23 17:05 Dose: 1,000 mls/hr Documented By: EDEN Morphine Sulfate (Morphine 4 Mg/Ml Inj) 4 mg IV NOW ONE Stop: 02/25/23 22:09 Last Admin: 02/25/23 22:15 Dose: 4 mg Documented By: JAYLEEN Ondansetron HCl (Ondansetron 4 Mg Odt) 4 mg PO NOW PRN PRN Reason: Nausea And Vomiting Ondansetron HCl (Ondansetron 4 Mg/2 Ml Inj) 4 mg IV NOW PRN PRN Reason: Nausea And Vomiting Last Admin: 02/25/23 20:48 Dose: 4 mg Documented By: Admin: 02/25/23 16:47 Dose: 4 mg Documented By: YAW Pantoprazole Sodium (Pantoprazole 40 Mg Vial) 40 mg IV NOW ONE Stop: 02/25/23 22:58 Last Admin: 02/25/23 23:05 Dose: 40 mg Documented By: JAYLEEN Vital Signs Vital signs: Vital Signs - 8 hr 02/25/23 22:58 02/25/23 22:58 02/25/23 23:00 Pulse Rate 67 Blood Pressure 122/68 120/76 Pulse Oximetry 97 02/25/23 23:00 Pulse Rate 67 Blood Pressure Pulse Oximetry 97 MDM - Abdominal Pain Lab Data 02/25/23 16:52 02/25/23 16:52 Labs: Lab Results 02/25/23 02/25/23 02/25/23 Range/Units 16:52 16:52 17:40 WBC 8.4 (4.5-11.0) X10^3/uL RBC 4.48 (4.0-5.2) X10^6/uL Hgb 13.0 (12.0-16.0) g/dL Hct 38.4 (36-46) % MCV 85.6 (80-100) fL MCH 29.1 (26-34) PG MCHC 34.0 (30-36) % RDW 14.0 (11.6-14.8) % Plt Count 208 (150-400) X10^3/uL Neut % (Auto) 69.0 (50-75) % Lymph % (Auto) 23.2 L (25-40) % [place] % (Auto) 6.0 (3-14) % Eos % (Auto) 1.2 L (2-4) % Baso % (Auto) 0.6 (0-2) % Neut # (Auto) 5800 (4071-6789) /uL Lymph # (Auto) 2000 (8944-3993) /uL [place] # (Auto) 500 (0-900) /uL Eos # (Auto) 100 (0-450) /uL Baso # (Auto) 100 (0-100) /uL Sodium 137 (137-145) mmol/L Potassium 4.2 (3.4-5.1) mmol/L Chloride 104 (98-107) mmol/L Carbon Dioxide 23 (22-32) mmol/L BUN 9 (7-17) mg/dL Creatinine 0.61 (0.52-1.04) mg/dL Estimated GFR > 60 (>60) mL/min BUN/Creatinine Ratio 14.8 (6-22) Glucose 88 (70-100) mg/dL Calcium 9.1 (8.4-10.2) mg/dL Total Bilirubin 0.5 (0.2-1.3) mg/dL AST 34 (14-36) IU/L ALT 20 (<35) IU/L Alkaline Phosphatase 44 (38-126) U/L Total Protein 8.1 (6.3-8.2) g/dL Albumin 4.9 (3.5-5.0) g/dL Globulin 3.2 (1.7-4.1) g/dL Albumin/Globulin Ratio 1.5 (1.0-2.8) Lipase 86 (23-300) U/L Urine RBC None seen (0-5/HPF) Urine WBC 0-1/hpf (0-5/HPF) Ur Squamous Epith Cells 0-1 /hpf (0-5/HPF) Urine Bacteria None seen (None) Stl C. cayetanensis PCR (Not Detect) Stool Rotavirus (PCR) (Not Detect) Stool Adenovirus (PCR) (Not Detect) Stool Astrovirus (PCR) (Not Detect) Stool Cryptosporidium PCR (Not Detect) Stl E.coli Shiga Tox PCR (Not Detect) St Sh/Enteroin Ecoli PCR (Not Detect) Stool E coli O157 PCR Stl Enterotoxigenic E PCR (Not Detect) Stool EPEC (PCR) (Not Detect) Stl E. histolytica PCR (Not Detect) Stool Giardia Lamblia PCR (Not Detect) Stool Sapovirus (PCR) (Not Detect) Stl P. shigelloides PCR (Not Detect) St Y.enterocolitica PCR (Not Detect) Stool Vibrio (PCR) (Not Detect) Stl Vibrio cholerae PCR (Not Detect) Stl Enteroaggr Ecoli PCR (Not Detect) Stl Norovirus GI/GII PCR (Not Detect) Campylobacter (PCR) (Not Detect) C. difficile Tox (PCR) (Not Detect) Salmonella (PCR) (Not Detect) 02/25/23 Range/Units 17:50 WBC (4.5-11.0) X10^3/uL RBC (4.0-5.2) X10^6/uL Hgb (12.0-16.0) g/dL Hct (36-46) % MCV (80-100) fL MCH (26-34) PG MCHC (30-36) % RDW (11.6-14.8) % Plt Count (150-400) X10^3/uL Neut % (Auto) (50-75) % Lymph % (Auto) (25-40) % [place] % (Auto) (3-14) % Eos % (Auto) (2-4) % Baso % (Auto) (0-2) % Neut # (Auto) (7791-5871) /uL Lymph # (Auto) (0113-1872) /uL [place] # (Auto) (0-900) /uL Eos # (Auto) (0-450) /uL Baso # (Auto) (0-100) /uL Sodium (137-145) mmol/L Potassium (3.4-5.1) mmol/L Chloride (98-107) mmol/L Carbon Dioxide (22-32) mmol/L BUN (7-17) mg/dL Creatinine (0.52-1.04) mg/dL Estimated GFR (>60) mL/min BUN/Creatinine Ratio (6-22) Glucose (70-100) mg/dL Calcium (8.4-10.2) mg/dL Total Bilirubin (0.2-1.3) mg/dL AST (14-36) IU/L ALT (<35) IU/L Alkaline Phosphatase (38-126) U/L Total Protein (6.3-8.2) g/dL Albumin (3.5-5.0) g/dL Globulin (1.7-4.1) g/dL Albumin/Globulin Ratio (1.0-2.8) Lipase (23-300) U/L Urine RBC (0-5/HPF) Urine WBC (0-5/HPF) Ur Squamous Epith Cells (0-5/HPF) Urine Bacteria (None) Stl C. cayetanensis PCR Not detected (Not Detect) Stool Rotavirus (PCR) Not detected (Not Detect) Stool Adenovirus (PCR) Not detected (Not Detect) Stool Astrovirus (PCR) Not detected (Not Detect) Stool Cryptosporidium PCR Not detected (Not Detect) Stl E.coli Shiga Tox PCR Not detected (Not Detect) St Sh/Enteroin Ecoli PCR Not detected (Not Detect) Stool E coli O157 PCR Not Reportable Stl Enterotoxigenic E PCR Not detected (Not Detect) Stool EPEC (PCR) Not detected (Not Detect) Stl E. histolytica PCR Not detected (Not Detect) Stool Giardia Lamblia PCR Not detected (Not Detect) Stool Sapovirus (PCR) Not detected (Not Detect) Stl P. shigelloides PCR Not detected (Not Detect) St Y.enterocolitica PCR Not detected (Not Detect) Stool Vibrio (PCR) Not detected (Not Detect) Stl Vibrio cholerae PCR Not detected (Not Detect) Stl Enteroaggr Ecoli PCR Not detected (Not Detect) Stl Norovirus GI/GII PCR Not detected (Not Detect) Campylobacter (PCR) Not detected (Not Detect) C. difficile Tox (PCR) Not detected (Not Detect) Salmonella (PCR) Not detected (Not Detect) Point of care testing: Urine Dip Bedside Urine Glucose Negative Bedside Urine Bilirubin - Negative Bedside Urine Ketone - Negative Urine Specific [place] 1.010 Bedside Urine Occult Blood +/- Bedside Urine pH 7.5 Bedside Urine Protein - Negative Bedside Urine Urobilinogen - Negative Bedside Urine Nitrite - Negative Bedside Urine Leukocytes - Negative Esterase ECG Data Interpretation: Sinus rhythm rate 79 WI interval 166 QRS [address] changes or T-wave inversions MDM Narrative Medical decision making narrative: 22-year-old female presents today with nausea vomiting diarrhea going for about 11 days she is been taking home Zofran but vomiting. She reports that she takes the Zofran and immediately vomits up afterwards. She tries to stare off the vomiting with the Zofran but it does not seem to be working. She was able to keep anything down today however blood work is overall reassuring without significant sign of dehydration or electrolyte abnormality. He does have some left upper quadrant pain she has some acid reflux she is been unable to keep down her regular psych meds and acid reflux medication. Her abdomen is soft no leukocytosis early suspect a gastroenteritis possibly in ulcer low suspicion for any sort of perforation or acute abdomen she was given a dose of morphine she is awake alert oriented overall appears well minimal pain in the upper quadrant. Symptoms was consistent with a gastroenteritis despite a negative GI panel. Discussed oral rehydration with her we will give her some suppository Phenergan to see if that is more helpful Discharge Plan Departure Patient Disposition: Home Clinical Impression: Gastroenteritis Instructions: DI for Viral Gastroenteritis -- Adult Activity Restrictions/Additional Instructions: *You have been diagnosed with gastroenteritis *What to do: At this time increase fluids as tolerated try to take your daily medications this will probably help you *Continue to take medications as directed Phenergan suppository every 6 hours if needed for nausea vomiting Zofran 4 mg every 8 hours if needed for nausea vomiting *Follow up with your primary care provider in 2-3 days or call [phone] *Return to ER if you should have passing out unable to tolerate fluids increasing pain or any new, worsening or concerning symptoms Prescriptions: New promethazine 25 mg suppository 25 mg WI Q6H PRN (Reason: nausea and vomiting) Qty: 12 0RF ondansetron 4 mg tablet,disintegrating 4 mg PO Q8H PRN (Reason: nausea and vomiting) Qty: 10 0RF No Action ondansetron 4 mg tablet,disintegrating 4 mg PO Q8H PRN (Reason: nausea and vomiting) Qty: 20 0RF ondansetron 4 mg tablet,disintegrating 4 mg PO Q8H PRN (Reason: nausea and vomiting) Qty: 14 0RF Referrals: Cherelle George MD [Primary Care Provider] - Stand Alone Forms: Patient Portal/API
[2023-02-25 22:58] VITALS: BP 122/68; PULSE 67; O2SAT 97
[2023-02-25 23:00] VITALS: BP 120/76; PULSE 67; O2SAT 97
[2023-02-25] MEDS: PANTOPRAZOLE 40 MG VIAL IV (23:05)
== END 2023-02-25 23:15 | disposition home or self-care (01) ==
PROVIDERS: Emergency Medicine; Emergency Provider Emergency Medicine; PCP Family Medicine
DX: K52.9 Noninfective gastroenteritis and colitis, unspecified (principal); R11.2 Nausea with vomiting, unspecified
CPT/HCPCS: 36415; 80053; 81003; 81015; 83690; 85025; 87507; 93005; 93010; 96361; 96374; 96375; 96376; 99284; C9113; J2270; J2405

== ENCOUNTER 2023-03-18 00:47 | Emergency (ER) | payer OTHER, SELFPAY ==
[2023-03-18] VITALS (7 sets, daily range): BP systolic 125–137; BP diastolic 60–86; PULSE 73–82; RESP 16–26; TEMP 36.9; O2SAT 95–98; BMI 30.9
--- NOTE | 2023-03-18 00:52 | DI.RAD.S_ITS ---
PROCEDURE: XR ANKLE LT MIN 3V INDICATIONS: fall pain TECHNIQUE: 3 views of the ankle were acquired. COMPARISON: None. FINDINGS: Bones: No fractures or dislocations. Ankle mortise is normally aligned. No suspicious bony lesions. Soft tissues: No tibiotalar joint effusion. Achilles tendon appears normal. IMPRESSION: No displaced fracture or significant joint effusion. Dictated by: Casey Claros M.D. on 03/18/2023 at 2:01 Approved by: Casey Claros M.D. on 03/18/2023 at 2:01
--- NOTE | 2023-03-18 00:53 | DI.RAD.S_ITS ---
PROCEDURE: XR CHEST 2V INDICATIONS: syncope fall down stairs TECHNIQUE: 2 views of the chest were acquired. COMPARISON: [facility], , XR CHEST 1V, 02/16/2023, 15:33. FINDINGS: Surgical changes and devices: None. Lungs and pleura: Lungs are clear. No pleural effusions or pneumothorax. Mediastinum: Mediastinal contours are normal. Heart size is normal. Bones and chest wall: No suspicious bony abnormalities. Soft tissues appear unremarkable. IMPRESSION: No acute cardiopulmonary abnormality is seen. Dictated by: Casey Claros M.D. on 03/18/2023 at 2:01 Approved by: Casey Claros M.D. on 03/18/2023 at 2:02
[2023-03-18 01:14] LABS: Add Manual Diff / Slide Review NO; Basophils Absolute Auto 100 /uL (0-100); Eosinophils Absolute Auto 100 /uL (0-450); Eosinophils Percent Auto 1.2 % (2-4); Hematocrit 39.5 % (36-46); Hemoglobin 13.7 g/dL (12.0-16.0); Lymphocytes Absolute Auto 2500 /uL (1100-4500); Lymphocytes Percent Auto 29.2 % (25-40); Mean Corpuscular HGB Conc 34.6 % (30-36); Mean Corpuscular Hemoglobin 29.4 PG (26-34); Monocytes Absolute Auto 600 /uL (0-900); Monocytes Percent Auto 6.9 % (3-14); Neutrophils Absolute Auto 5400 /uL (1500-7000); Neutrophils Percent Auto 61.7 % (50-75); Platelet Count 253 X10^3/uL (150-400); Red Blood Cell Count 4.65 X10^6/uL (4.0-5.2); White Blood Cell Count 8.7 X10^3/uL (4.5-11.0)
[2023-03-18 01:15] LABS: Alanine Aminotransferase 24 IU/L (<35); Albumin Globulin Ratio 1.4 (1.0-2.8); Alkaline Phosphatase 44 U/L (38-126); Aspartate Aminotransferase 33 IU/L (14-36); Bilirubin Total 0.4 mg/dL (0.2-1.3); Blood Urea Nitrogen 16 mg/dL (7-17); Calcium 9.7 mg/dL (8.4-10.2); Carbon Dioxide 25 mmol/L (22-32); Chloride 102 mmol/L (98-107); Creatine Kinase 143 U/L (30-135); Estimated Glomerular Filt Rate > 60 mL/min (>60); Globulin 3.5 g/dL (1.7-4.1); Glucose 105 mg/dL (70-100); HEMOLYSIS 26 (0-50); Lipase 110 U/L (23-300); Potassium 3.8 mmol/L (3.4-5.1); Sodium 140 mmol/L (137-145); Total Protein 8.5 g/dL (6.3-8.2)
[2023-03-18 01:27] LABS: Troponin I < 0.012 ng/mL (0.01-0.034)
--- NOTE | 2023-03-18 02:04 | ED_ITS ---
HPI - Fall General Chief Complaint: Fall Stated Complaint: fall +LOC Time Seen by Provider: 03/18/23 00:52 Source: patient and EMS Mode of arrival: Ambulatory History of Present Illness HPI Narrative: Patient is a 22-year-old female history of POTS syndrome and now her 5th visit to the emergency department since 02/16/2023 presents today after she says a syncopal episode at the top of the stairs. She is reports usually with her POTS she feels some tachycardia and lightheadedness she says she maybe felt that and then fell down the stairs hurting her left ankle. No nausea or vomiting no numbness tingling or weakness. She is is able to stand and ambulate on her ankle. He is having some mild lower back tenderness and tightness. No other sign of injury or complaint of pain. Related Data Previous Rx's Medication Instructions Recorded ondansetron 4 mg disintegrating 4 mg PO Q8H PRN nausea and 02/19/23 tablet vomiting #20 tabs ondansetron 4 mg disintegrating 4 mg PO Q8H PRN nausea and 02/23/23 tablet vomiting #14 tabs ondansetron 4 mg disintegrating 4 mg PO Q8H PRN nausea and 02/25/23 tablet vomiting #10 tabs promethazine 25 mg rectal 25 mg DC Q6H PRN nausea and 02/25/23 suppository vomiting #12 ea Allergies Allergy/AdvReac Type Severity Reaction Status Date / Time No Known Drug Allergies Allergy Verified 02/23/23 16:04 Review of Systems Review of Systems ROS Unobtainable: All systems reviewed & are unremarkable except as noted in HPI and below Patient History Social History Smoking Status: Former smoker Smoking Status: Former smoker tobacco type: cigarettes and vaping Substance Use Type: marijuana Exam Initial Vital Signs Initial Vital Signs: Vital Signs Temperature 98.5 F 03/18/23 00:50 Pulse Rate 77 03/18/23 00:50 Respiratory Rate 16 03/18/23 00:50 Blood Pressure 137/86 03/18/23 00:50 Pulse Oximetry 98 03/18/23 00:50 Oxygen Delivery Method Room Air 03/18/23 00:50 GENERAL: Alert well-appearing 22-year-old female HEENT: Head atraumatic,EOMI, pupils reactive, face symmetric CARDIOVASCULAR: Regular rate and rhythm without murmurs, rubs or gallops. RESPIRATORY: Breath sounds equal bilaterally, no wheezes rales or rhonchi. ABDOMEN: Soft, nontender. Normoactive bowel sounds all 4 quadrants. No guarding or rebound. BACK: No vertebral tenderness no step-off EXTREMITIES: Normal range of motion, no clubbing or edema. Neurovascularly inta ct Left ankle mildly tender no significant swelling knee is stable distal pedal pulse intact NEUROLOGICAL: Alert and oriented x4.Normal gait and speech. Cranial nerves II through XII grossly intact. SKIN: Warm, dry, no laceration, no petechiae, no rashes or lesions. Course Orders Ordered: ED Orders 03/18/23 00:52 XR ankle LT min 3V Stat EKG-12 Lead Stat 03/18/23 00:53 XR chest 2V Stat 03/18/23 00:58 Complete Blood Count AUTO DIFF Stat Comprehensive Metabolic Panel Stat Lipase Stat Troponin & CK Cardiac Panel Stat Vital Signs Vital signs: Vital Signs - 8 hr 03/18/23 00:50 03/18/23 00:53 03/18/23 01:00 Temperature 98.5 F Pulse Rate 77 82 Respiratory Rate 16 Blood Pressure 137/86 136/83 Pulse Oximetry 98 96 Oxygen Delivery Method Room Air 03/18/23 01:00 03/18/23 01:30 03/18/23 02:00 Temperature Pulse Rate 80 75 73 Respiratory Rate 26 H 20 Blood Pressure Pulse Oximetry 95 96 97 Oxygen Delivery Method 03/18/23 02:23 03/18/23 02:24 Temperature Pulse Rate 76 Respiratory Rate 24 Blood Pressure 125/60 Pulse Oximetry 97 Oxygen Delivery Method MDM - Fall Lab Data 03/18/23 00:58 03/18/23 00:58 Labs: Lab Results 03/18/23 03/18/23 Range/Units 00:58 00:58 WBC 8.7 (4.5-11.0) X10^3/uL RBC 4.65 (4.0-5.2) X10^6/uL Hgb 13.7 (12.0-16.0) g/dL Hct 39.5 (36-46) % MCV 85.0 (80-100) fL MCH 29.4 (26-34) PG MCHC 34.6 (30-36) % RDW 14.0 (11.6-14.8) % Plt Count 253 (150-400) X10^3/uL Neut % (Auto) 61.7 (50-75) % Lymph % (Auto) 29.2 (25-40) % [place] % (Auto) 6.9 (3-14) % Eos % (Auto) 1.2 L (2-4) % Baso % (Auto) 1.0 (0-2) % Neut # (Auto) 5400 (3614-8477) /uL Lymph # (Auto) 2500 (1767-2884) /uL [place] # (Auto) 600 (0-900) /uL Eos # (Auto) 100 (0-450) /uL Baso # (Auto) 100 (0-100) /uL Sodium 140 (137-145) mmol/L Potassium 3.8 (3.4-5.1) mmol/L Chloride 102 (98-107) mmol/L Carbon Dioxide 25 (22-32) mmol/L BUN 16 (7-17) mg/dL Creatinine 0.80 (0.52-1.04) mg/dL Estimated GFR > 60 (>60) mL/min BUN/Creatinine Ratio 20.0 (6-22) Glucose 105 H (70-100) mg/dL Calcium 9.7 (8.4-10.2) mg/dL Total Bilirubin 0.4 (0.2-1.3) mg/dL AST 33 (14-36) IU/L ALT 24 (<35) IU/L Alkaline Phosphatase 44 (38-126) U/L Total Creatine Kinase 143 H (30-135) U/L Troponin I < 0.012 (0.01-0.034) ng/mL Total Protein 8.5 H (6.3-8.2) g/dL Albumin 5.0 (3.5-5.0) g/dL Globulin 3.5 (1.7-4.1) g/dL Albumin/Globulin Ratio 1.4 (1.0-2.8) Lipase 110 (23-300) U/L Imaging Data Chest x-ray: Radiologist's Impression: PROCEDURE:? XR CHEST 2V ? INDICATIONS:? syncope fall down stairs ? TECHNIQUE:? 2 views of the chest were acquired.? ? COMPARISON:? [facility], CR, XR CHEST 1V, 02/16/2023, 15:33. ? FINDINGS:? ? Surgical changes and devices:? None.? ? Lungs and pleura:? Lungs are clear.? No pleural effusions or pneumothorax.? ? Mediastinum:? Mediastinal contours are normal.? Heart size is normal.? ? Bones and chest wall:? No suspicious bony abnormalities.? Soft tissues appear unremarkable.? ? ? IMPRESSION:? No acute cardiopulmonary abnormality is seen. ? ? Dictated by: Casey Claros M.D. on 03/18/2023 at 2:01 ? ? Extremity x-ray #1: Radiologist's Impression: PROCEDURE:? XR ANKLE LT MIN 3V ? INDICATIONS:? fall pain ? TECHNIQUE:? 3 views of the ankle were acquired.? ? COMPARISON:? None. ? FINDINGS:? ? Bones:? No fractures or dislocations.? Ankle mortise is normally aligned.? No suspicious bony lesions.? ? Soft tissues:? No tibiotalar joint effusion.? Achilles tendon appears normal.? ? ? IMPRESSION:? No displaced fracture or significant joint effusion. ? Dictated by: Casey Claros M.D. on 03/18/2023 at 2:01 ECG Data Interpretation: Normal sinus rhythm rate 69 DC interval 168 QRS [address] changes no T- wave inversions MDM Narrative Medical decision making narrative: Patient is a healthy 22-year-old female who presents today after syncopal fall down stairs. She is reporting some left ankle pain. X-ray is negative she has no sign of injury able to stand and ambulate. Vitals are stable blood work is overall reassuring and stable. She has no signs or symptoms of head injury at this time no need for imaging. Discharge Plan Departure Patient Disposition: Home Clinical Impression: Left ankle sprain, Syncope, near Instructions: Ankle Sprain Activity Restrictions/Additional Instructions: *You have been diagnosed with left ankle sprain *What to do: At this time blood work is overall reassuring no evidence of broken bones. Elevate and ice ankle as needed. May walk-in ambulate as tolerated. Expect to be sore tomorrow *Continue to take medications as directed Motrin 600 mg every 6 hours if needed for [id number] pain *Follow up with your primary care provider in 2-3 days or call [phone] *Return to ER if you should have increasing pain weakness recurrent falls or any new, worsening or concerning symptoms Prescriptions: No Action ondansetron 4 mg tablet,disintegrating 4 mg PO Q8H PRN (Reason: nausea and vomiting) Qty: 20 0RF promethazine 25 mg suppository 25 mg DC Q6H PRN (Reason: nausea and vomiting) Qty: 12 0RF ondansetron 4 mg tablet,disintegrating 4 mg PO Q8H PRN (Reason: nausea and vomiting) Qty: 10 0RF ondansetron 4 mg tablet,disintegrating 4 mg PO Q8H PRN (Reason: nausea and vomiting) Qty: 14 0RF Referrals: Cherelle George MD [Primary Care Provider] - Stand Alone Forms: Patient Portal/API
== END 2023-03-18 02:31 | disposition home or self-care (01) ==
PROVIDERS: Emergency Provider Emergency Medicine; PCP Family Medicine
DX: R55 Syncope and collapse (principal); S93.402A Sprain of unspecified ligament of left ankle, initial encounter; R00.0 Tachycardia, unspecified; W10.9XXA Fall (on) (from) unspecified stairs and steps, initial encounter
CPT/HCPCS: 36415; 71046; 73610; 80053; 82550; 83690; 84484; 85025; 93005; 99284

== ENCOUNTER 2023-03-27 00:43 | Emergency (ER) | payer OTHER, SELFPAY ==
[2023-03-27] VITALS (8 sets, daily range): BP systolic 109–135; BP diastolic 54–79; PULSE 66–90; RESP 18; TEMP 36.4; O2SAT 97–99; BMI 35.4
--- NOTE | 2023-03-27 00:54 | DI.RAD.S_ITS ---
PROCEDURE: XR ABDOMEN 1V INDICATIONS: Vomiting TECHNIQUE: One view of the abdomen acquired. COMPARISON: None. FINDINGS: Surgical changes and devices: None. Bowel: Bowel gas pattern is normal. Soft tissues: No suspicious abdominal calcifications. Bones: No suspicious bony lesions. IMPRESSION: 1. Normal bowel gas pattern. Dictated by: Bandar Del Rosario M.D. on 03/27/2023 at 1:47 Approved by: Bandar Del Rosario M.D. on 03/27/2023 at 1:47
--- NOTE | 2023-03-27 00:54 | DI.RAD.S_ITS ---
PROCEDURE: XR CHEST 1V INDICATIONS: Vomiting TECHNIQUE: One view of the chest was acquired. COMPARISON: [facility], CR, XR CHEST 2V, 03/18/2023, 1:01. FINDINGS: Surgical changes and devices: None. Lungs and pleura: Lungs are clear. No pleural effusions or pneumothorax. Mediastinum: Mediastinal contours appear normal. Heart size is normal. Bones and chest wall: No suspicious bony lesions. Overlying soft tissues appear unremarkable. IMPRESSION: 1. No acute cardiopulmonary disease. Dictated by: Bandar Del Rosario M.D. on 03/27/2023 at 1:46 Approved by: Bandar Del Rosario M.D. on 03/27/2023 at 1:46
[2023-03-27] MEDS: ONDANSETRON 4 MG/2 ML INJ IV (01:00)
[2023-03-27] MEDS: SODIUM CHLORIDE 0.9% 1,000 ML 1000 ML IV (01:00)
[2023-03-27 01:16] LABS: Add Manual Diff / Slide Review NO; Basophils Absolute Auto 100 /uL (0-100); Basophils Percent Auto 1.8 % (0-2); Eosinophils Absolute Auto 200 /uL (0-450); Eosinophils Percent Auto 2.6 % (2-4); Hematocrit 36.1 % (36-46); Hemoglobin 12.4 g/dL (12.0-16.0); Lymphocytes Absolute Auto 2200 /uL (1100-4500); Lymphocytes Percent Auto 32.4 % (25-40); Mean Corpuscular HGB Conc 34.3 % (30-36); Mean Corpuscular Hemoglobin 29.3 PG (26-34); Mean Corpuscular Volume 85.5 fL (80-100); Monocytes Absolute Auto 500 /uL (0-900); Monocytes Percent Auto 7.7 % (3-14); Neutrophils Absolute Auto 3800 /uL (1500-7000); Neutrophils Percent Auto 55.5 % (50-75); Platelet Count 185 X10^3/uL (150-400); Red Blood Cell Count 4.22 X10^6/uL (4.0-5.2); Red Cell Distribution Width 13.9 % (11.6-14.8); White Blood Cell Count 6.9 X10^3/uL (4.5-11.0)
[2023-03-27 01:17] LABS: Alanine Aminotransferase 19 IU/L (<35); Albumin 4.5 g/dL (3.5-5.0); Albumin Globulin Ratio 1.5 (1.0-2.8); Alkaline Phosphatase 38 U/L (38-126); Aspartate Aminotransferase 26 IU/L (14-36); BUN Creatinine Ratio 28.6 (6-22); Bilirubin Total 0.3 mg/dL (0.2-1.3); Blood Urea Nitrogen 22 mg/dL (7-17); Calcium 8.8 mg/dL (8.4-10.2); Carbon Dioxide 26 mmol/L (22-32); Chloride 102 mmol/L (98-107); Estimated Glomerular Filt Rate > 60 mL/min (>60); Globulin 3.1 g/dL (1.7-4.1); Glucose 94 mg/dL (70-100); HEMOLYSIS < 15 (0-50); Lipase 100 U/L (23-300); Potassium 3.8 mmol/L (3.4-5.1); Sodium 138 mmol/L (137-145); Total Protein 7.6 g/dL (6.3-8.2)
--- NOTE | 2023-03-27 01:20 | ED.GENADULT ---
HPI - General Adult General Chief complaint: Abdominal Pain Stated complaint: vomiting- small amt blood- x4. poor intake. Time Seen by Provider: 03/27/23 00:46 Source: patient and EMS Mode of arrival: EMS Limitations: no limitations History of Present Illness HPI narrative: Patient is a 22-year-old female. Has been seen here in the emergency department multiple times over the past several weeks for various issues much which revolve around issues with gastritis nausea and vomiting and diarrhea. She does have Zofran at home. Also has rectal Phenergan. Is scheduled to see GI but not for approximately a weeks. She is here for evaluation vomiting all day today. She states she is vomiting small amount of blood as well. The diarrhea has improved/resolved. She states that she feels like her abdomen is cramping. No fevers. Related Data Previous Rx's Medication Instructions Recorded ondansetron 4 mg disintegrating 4 mg PO Q8H PRN nausea and 02/19/23 tablet vomiting #20 tabs ondansetron 4 mg disintegrating 4 mg PO Q8H PRN nausea and 02/23/23 tablet vomiting #14 tabs ondansetron 4 mg disintegrating 4 mg PO Q8H PRN nausea and 02/25/23 tablet vomiting #10 tabs promethazine 25 mg rectal 25 mg MD Q6H PRN nausea and 02/25/23 suppository vomiting #12 ea metoclopramide HCl 10 mg tablet 10 mg PO Q6H PRN nausea and 03/27/23 (Reglan) vomiting #14 tabs Allergies Allergy/AdvReac Type Severity Reaction Status Date / Time No Known Drug Allergies Allergy Verified 02/23/23 16:04 Review of Systems Constitutional Constitutional: Reports system reviewed and no additional complaints, except as documented Cardiovascular Cardiovascular: Reports system reviewed and no additional complaints, except as documented Respiratory Respiratory: Reports system reviewed and no additional complaints, except as documented Gastrointestinal Gastrointestinal: Reports system reviewed and no additional complaints, except as documented Genitourinary Genitourinary: Reports system reviewed and no additional complaints, except as documented Integumentary/Breasts Skin/Breast: Reports system reviewed and no additional complaints, except as documented Patient History Social History Smoking Status: Former smoker Smoking Status: Former smoker tobacco type: cigarettes and vaping Substance Use Type: marijuana Exam Initial Vital Signs Initial Vital Signs: Vital Signs Temperature 97.5 F L 03/27/23 00:45 Pulse Rate 77 03/27/23 00:45 Respiratory Rate 18 03/27/23 00:45 Blood Pressure 125/60 03/27/23 00:45 Pulse Oximetry 98 03/27/23 00:45 Oxygen Delivery Method Room Air 03/27/23 00:45 Const General: cooperative, comfortable and No ill appearing HENMT Head: normal to inspection and normocephalic Resp Effort & Inspection: normal respiratory effort Auscultation: clear to auscultation bilaterally GI Inspection: normal to inspection and non-distended Skin General: no rashes or lesions noted Neuro General: patient alert, patient awake and moves all extremities Course Orders Ordered: ED Orders 03/27/23 00:54 XR abdomen 1V Stat XR chest 1V Stat 03/27/23 00:55 Complete Blood Count AUTO DIFF Stat Comprehensive Metabolic Panel Stat Lipase Stat Test Serum,Qual Stat Discontinued Medications Sodium Chloride (Normal Saline 0.9%) 1,000 mls @ 1,000 mls/hr IV BOLUS ONE Stop: 03/27/23 01:53 Last Infusion: 03/27/23 02:11 Dose: 0 mls/hr Documented By: Admin: 03/27/23 01:00 Dose: 1,000 mls/hr Documented By: JAEL Lorazepam (Lorazepam 2 Mg/Ml Inj) 1 mg IV NOW ONE Stop: 03/27/23 02:03 Last Admin: 03/27/23 02:10 Dose: Not Given Documented By: JAEL Metoclopramide HCl (Metoclopramide 10 Mg/2 Ml Inj) 10 mg IV NOW ONE Stop: 03/27/23 02:04 Last Admin: 03/27/23 02:11 Dose: 10 mg Documented By: JAEL Ondansetron HCl (Ondansetron 4 Mg/2 Ml Inj) 4 mg IV NOW ONE Stop: 03/27/23 00:56 Last Admin: 03/27/23 01:00 Dose: 4 mg Documented By: JAEL Vital Signs Vital signs: Vital Signs - 8 hr 03/27/23 00:45 03/27/23 00:47 03/27/23 01:00 Temperature 97.5 F L Pulse Rate 77 77 Respiratory Rate 18 Blood Pressure 125/60 112/54 L Pulse Oximetry 98 98 Oxygen Delivery Method Room Air Room Air 03/27/23 01:00 03/27/23 01:30 03/27/23 01:36 Temperature Pulse Rate 86 84 Respiratory Rate Blood Pressure 109/64 Pulse Oximetry 97 99 Oxygen Delivery Method Room Air Room Air 03/27/23 01:36 03/27/23 02:00 03/27/23 02:00 Temperature Pulse Rate 90 72 Respiratory Rate Blood Pressure 135/79 Pulse Oximetry 97 99 Oxygen Delivery Method Room Air Room Air 03/27/23 02:30 03/27/23 02:30 03/27/23 03:00 Temperature Pulse Rate 90 Respiratory Rate Blood Pressure 112/64 118/56 L Pulse Oximetry 99 Oxygen Delivery Method Room Air 03/27/23 03:00 Temperature Pulse Rate 66 Respiratory Rate Blood Pressure Pulse Oximetry 98 Oxygen Delivery Method Room Air Medical Decision Making Medical Records Medical records reviewed: Yes I reviewed the patient's medical records. Lab Data Lab results reviewed: Yes I reviewed the patient's lab results. 03/27/23 00:55 03/27/23 00:55 Labs: Lab Results 03/27/23 03/27/23 03/27/23 Range/Units 00:55 00:55 00:55 WBC 6.9 (4.5-11.0) X10^3/uL RBC 4.22 (4.0-5.2) X10^6/uL Hgb 12.4 (12.0-16.0) g/dL Hct 36.1 (36-46) % MCV 85.5 (80-100) fL MCH 29.3 (26-34) PG MCHC 34.3 (30-36) % RDW 13.9 (11.6-14.8) % Plt Count 185 (150-400) X10^3/uL Neut % (Auto) 55.5 (50-75) % Lymph % (Auto) 32.4 (25-40) % [place] % (Auto) 7.7 (3-14) % Eos % (Auto) 2.6 (2-4) % Baso % (Auto) 1.8 (0-2) % Neut # (Auto) 3800 (0430-7807) /uL Lymph # (Auto) 2200 (4624-2878) /uL [place] # (Auto) 500 (0-900) /uL Eos # (Auto) 200 (0-450) /uL Baso # (Auto) 100 (0-100) /uL Sodium 138 (137-145) mmol/L Potassium 3.8 (3.4-5.1) mmol/L Chloride 102 (98-107) mmol/L Carbon Dioxide 26 (22-32) mmol/L BUN 22 H (7-17) mg/dL Creatinine 0.77 (0.52-1.04) mg/dL Estimated GFR > 60 (>60) mL/min BUN/Creatinine Ratio 28.6 H (6-22) Glucose 94 (70-100) mg/dL Calcium 8.8 (8.4-10.2) mg/dL Total Bilirubin 0.3 (0.2-1.3) mg/dL AST 26 (14-36) IU/L ALT 19 (<35) IU/L Alkaline Phosphatase 38 (38-126) U/L Total Protein 7.6 (6.3-8.2) g/dL Albumin 4.5 (3.5-5.0) g/dL Globulin 3.1 (1.7-4.1) g/dL Albumin/Globulin Ratio 1.5 (1.0-2.8) Lipase 100 (23-300) U/L Serum , Qual Negative (Negative) Imaging Data Chest x-ray: Radiologist's Impression: PROCEDURE:? XR CHEST 1V ? INDICATIONS:? Vomiting ? TECHNIQUE:? One view of the chest was acquired.? ? COMPARISON:? [facility], , XR CHEST 2V, 03/18/2023, 1:01. ? FINDINGS:? ? Surgical changes and devices:? None.? ? Lungs and pleura:? Lungs are clear.? No pleural effusions or pneumothorax.? ? Mediastinum:? Mediastinal contours appear normal.? Heart size is normal.? ? Bones and chest wall:? No suspicious bony lesions.? Overlying soft tissues appear unremarkable.? ? ? IMPRESSION:? ? 1.? No acute cardiopulmonary disease. Abdominal x-ray: Radiologist's Impression: PROCEDURE:? XR ABDOMEN 1V ? INDICATIONS:? Vomiting ? TECHNIQUE:? One view of the abdomen acquired.? ? COMPARISON:? None. ? FINDINGS:? ? Surgical changes and devices:? None.? ? Bowel:? Bowel gas pattern is normal.? ? Soft tissues:? No suspicious abdominal calcifications.? ? Bones:? No suspicious bony lesions.? ? IMPRESSION:? ? 1. Normal bowel gas pattern.? MDM Narrative Medical decision making narrative: Workup here in the emergency department is very reassuring. Labs reassuring. Exam is reassuring. X-ray shows no free air. I do suspect that the vomiting is most likely Regina-Vera tears. I had a long discussion with the patient. I do think she would benefit from a referral to see GI most likely for an upper endoscopy and colonoscopy. There was no indication for emergent admission to the hospital or an emergent GI referral. She does have Zofran at home and also rectal Phenergan. I will send her home with Reglan. We did discuss bland diet and small amounts of fluid. No indication for radiologic studies today. She was given return precautions. She expressed understanding and agreement. Discharge Plan Departure Patient Disposition: Home Clinical Impression: Nausea and vomiting Instructions: Nausea and Vomiting-Adult Activity Restrictions/Additional Instructions: Your labs here in the ER are very reassuring. I do think that you would benefit from a referral to see Gastroenterology. You can contact them to see if they can move your appointment sooner than what it as already scheduled. Also recommend that you contact your primary doctor for a follow-up. You can use the Zofran and Phenergan that you have at home already for nausea. I did provide a prescription for another medicine called Reglan/metoclopramide. You can use this when as needed as well to try to help with any issues with vomiting. Return to the emergency department for new symptoms. Prescriptions: New metoclopramide HCl [Reglan] 10 mg tablet 10 mg PO Q6H PRN (Reason: nausea and vomiting) Qty: 14 0RF No Action ondansetron 4 mg tablet,disintegrating 4 mg PO Q8H PRN (Reason: nausea and vomiting) Qty: 20 0RF promethazine 25 mg suppository 25 mg MD Q6H PRN (Reason: nausea and vomiting) Qty: 12 0RF ondansetron 4 mg tablet,disintegrating 4 mg PO Q8H PRN (Reason: nausea and vomiting) Qty: 10 0RF ondansetron 4 mg tablet,disintegrating 4 mg PO Q8H PRN (Reason: nausea and vomiting) Qty: 14 0RF Referrals: Cherelle George MD [Primary Care Provider] - Stand Alone Forms: Patient Portal/API
[2023-03-27 01:36] LABS: Pregnancy Test Serum,Qual Negative (Negative)
[2023-03-27] MEDS: METOCLOPRAMIDE 10 MG/2 ML INJ IV (02:11)
--- NOTE | 2023-03-27 02:17 | PC.NURSE ---
Oral challenge start 0147. Pt had 200ml water and began vomiting at 0155. Dr. Bala molina.
--- NOTE | 2023-03-27 03:23 | PC.NURSE ---
Patient tolerated 100ml ice chips by mouth.
== END 2023-03-27 03:25 | disposition home or self-care (01) ==
PROVIDERS: Emergency Provider Emergency Medicine; PCP Family Medicine
DX: R11.2 Nausea with vomiting, unspecified (principal)
CPT/HCPCS: 36415; 71045; 74018; 80053; 83690; 84703; 85025; 96361; 96374; 96375; 99284; J2405; J2765

== ENCOUNTER 2023-03-31 22:09 | Emergency (ER) | payer OTHER, SELFPAY ==
[2023-03-31 22:14] VITALS: BP 134/69; PULSE 88; RESP 16; TEMP 37.2; O2SAT 97; BMI 38.3
[2023-04-01] VITALS (8 sets, daily range): BP systolic 108–130; BP diastolic 53–81; PULSE 67–79; RESP 16–18; TEMP 36.8; O2SAT 94–98
--- NOTE | 2023-04-01 01:21 | ED.NAVMDI ---
HPI - Nausea/Vomiting/Diarrhea General Chief complaint: Nausea/Vomiting/Diarrhea Stated complaint: vomiting since 02/19/23 Time Seen by Provider: 03/31/23 22:10 Source: patient Mode of arrival: Ambulatory History of Present Illness HPI Narrative: 22-year-old female with multiple prior visits for gastroenteritis, nausea, vomiting, diarrhea presents for the 2nd time this week. She states that she was seen about 5 weeks ago and diagnosed with a GI virus. She is been having a hard time keeping fluids down for the past week or so. Feels generally unwell. She states that she has been having a hard time keeping anything down today and as the day has worn on she is not even able to keep water down. She feels fatigued, dizzy and lightheaded. She is vomited streaks of blood few times over the course. Related Data Previous Rx's Medication Instructions Recorded ondansetron 4 mg disintegrating 4 mg PO Q8H PRN nausea and 02/19/23 tablet vomiting #20 tabs ondansetron 4 mg disintegrating 4 mg PO Q8H PRN nausea and 02/23/23 tablet vomiting #14 tabs ondansetron 4 mg disintegrating 4 mg PO Q8H PRN nausea and 02/25/23 tablet vomiting #10 tabs promethazine 25 mg rectal 25 mg [place] Q6H PRN nausea and 02/25/23 suppository vomiting #12 ea metoclopramide HCl 10 mg tablet 10 mg PO Q6H PRN nausea and 03/27/23 (Reglan) vomiting #14 tabs pantoprazole 40 mg tablet,delayed 40 mg PO DAILY #30 tabs 04/01/23 release (Protonix) Allergies Allergy/AdvReac Type Severity Reaction Status Date / Time No Known Drug Allergies Allergy Verified 02/23/23 16:04 Review of Systems Review of Systems Narrative: GENERAL: See HPI HEENT: Denies sinus pain, ear pain, sore throat, difficulty swallowing, dizziness. RESPIRATORY: Denies dyspnea, cough, wheezing, hemoptysis, sputum. CARDIOVASCULAR: Denies chest pain, palpitations, orthopnea, edema, GASTROINTESTINAL: See HPI : Denies dysuria, frequency, incontinence, hematuria, urinary retention. MUSCULOSKELETAL: denies weakness, joint pain, or bony pain SKIN: Denies rash, skin lesions, or other NEUROLOGIC: Denies weakness, headache, numbness, change in speech, confusion, seizures, incoordination. PSYCHIATRIC: No concerning psychosocial issues. 12 point review of systems is negative except for those stated above Patient History Social History Smoking Status: Former smoker Smoking Status: Former smoker tobacco type: cigarettes and vaping Substance Use Type: marijuana Exam Narrative Exam Narrative: GENERAL: [22] year old patient appears stated age. Well-developed patient, in mild distress. HEAD: Atraumatic. Normocephalic. EYES: Pupils equal round and reactive. Extraocular motions intact. No scleral icterus. No injection or drainage. ENT: Nose without bleeding, purulent drainage. Throat without erythema, tonsillar hypertrophy or exudate. Airway patent. NECK: Trachea midline. Non tender CARDIOVASCULAR: Regular rate and rhythm without murmurs, gallops, or rubs. RESPIRATORY: Clear to auscultation. Breath sounds equal bilaterally. No wheezes, rales, or rhonchi. GASTROINTESTINAL: Abdomen soft, non-tender, nondistended. EXTREMITIES: No edema or joint tenderness. BACK: Nontender without deformity or crepitance. No flank tenderness. NEURO: AOx3. SKIN: No rash or erythema of visible areas Initial Vital Signs Initial Vital Signs: Vital Signs Temperature 98.9 F 03/31/23 22:14 Pulse Rate 88 03/31/23 22:14 Respiratory Rate 16 03/31/23 22:14 Blood Pressure 134/69 03/31/23 22:14 Pulse Oximetry 97 03/31/23 22:14 Oxygen Delivery Method Room Air 03/31/23 22:14 Course Orders Ordered: ED Orders 04/01/23 01:40 Complete Blood Count AUTO DIFF Stat Comprehensive Metabolic Panel Stat Lipase Stat Discontinued Medications Sodium Chloride (Normal Saline 0.9%) 1,000 mls @ 1,000 mls/hr IV BOLUS ONE Stop: 04/01/23 02:28 Last Infusion: 04/01/23 02:28 Dose: 0 mls/hr Documented By: Admin: 04/01/23 01:35 Dose: 1,000 mls/hr Documented By: MANOLO Vital Signs Vital signs: Vital Signs - 8 hr 03/31/23 22:14 04/01/23 00:49 04/01/23 00:33 Temperature 98.9 F Pulse Rate 88 79 73 Respiratory Rate 16 Blood Pressure 134/69 128/56 L Pulse Oximetry 97 98 98 Oxygen Delivery Method Room Air Room Air 04/01/23 00:34 04/01/23 00:34 04/01/23 01:00 Temperature Pulse Rate 73 Respiratory Rate Blood Pressure 128/56 L 108/53 L Pulse Oximetry 98 Oxygen Delivery Method 04/01/23 01:00 04/01/23 01:30 04/01/23 01:30 Temperature Pulse Rate 67 69 Respiratory Rate Blood Pressure 111/65 Pulse Oximetry 96 94 Oxygen Delivery Method 04/01/23 02:00 Temperature Pulse Rate 71 Respiratory Rate 16 Blood Pressure Pulse Oximetry 96 Oxygen Delivery Method Room Air MDM - Nausea/Vomiting/Diarrhea Lab Data 04/01/23 01:40 04/01/23 01:40 Labs: Lab Results 04/01/23 04/01/23 Range/Units 01:40 01:40 WBC 8.1 (4.5-11.0) X10^3/uL RBC 4.44 (4.0-5.2) X10^6/uL Hgb 12.9 (12.0-16.0) g/dL Hct 38.1 (36-46) % MCV 85.8 (80-100) fL MCH 29.1 (26-34) PG MCHC 33.9 (30-36) % RDW 13.9 (11.6-14.8) % Plt Count 206 (150-400) X10^3/uL Neut % (Auto) 59.2 (50-75) % Lymph % (Auto) 30.8 (25-40) % [place] % (Auto) 7.6 (3-14) % Eos % (Auto) 1.7 L (2-4) % Baso % (Auto) 0.7 (0-2) % Neut # (Auto) 4800 (5804-7232) /uL Lymph # (Auto) 2500 (3566-9211) /uL [place] # (Auto) 600 (0-900) /uL Eos # (Auto) 100 (0-450) /uL Baso # (Auto) 100 (0-100) /uL Sodium 139 (137-145) mmol/L Potassium 3.7 (3.4-5.1) mmol/L Chloride 105 (98-107) mmol/L Carbon Dioxide 23 (22-32) mmol/L BUN 12 (7-17) mg/dL Creatinine 0.71 (0.52-1.04) mg/dL Estimated GFR > 60 (>60) mL/min BUN/Creatinine Ratio 16.9 (6-22) Glucose 94 (70-100) mg/dL Calcium 8.9 (8.4-10.2) mg/dL Total Bilirubin 0.7 (0.2-1.3) mg/dL AST 26 (14-36) IU/L ALT 18 (<35) IU/L Alkaline Phosphatase 46 (38-126) U/L Total Protein 7.7 (6.3-8.2) g/dL Albumin 4.5 (3.5-5.0) g/dL Globulin 3.2 (1.7-4.1) g/dL Albumin/Globulin Ratio 1.4 (1.0-2.8) Lipase 68 (23-300) U/L Urine Dip Bedside Urine Glucose Negative Bedside Urine Bilirubin - Negative Bedside Urine Ketone - Negative Urine Specific [place] 1.030 Bedside Urine Occult Blood - Negative Bedside Urine pH 6 Bedside Urine Protein - Negative Bedside Urine Urobilinogen - Negative Bedside Urine Nitrite - Negative Bedside Urine Leukocytes - Negative Esterase MDM Narrative Medical decision making narrative: [22] year old patient presents with nausea and vomiting, dizziness and lightheadedness Multiple etiologies for patient's symptoms considered including, but not limited to: [Gallbladder disease versus pancreatitis versus gastritis versus dehydration versus other] Prior Charts reviewed in our EMR Primary Historian: patient Labs reviewed and interpreted by myself: No significant abnormalities requiring intervention Patient's symptoms improved over duration of stay with above-stated therapies. Findings and discharge diagnosis discussed with patient/family followed by verbalization of understanding Return precautions discussed with patient/family whom verbalize understanding of diagnosis and plan Discharge Plan Departure Patient Disposition: Home Clinical Impression: Vomiting Instructions: DI for Vomiting -- Activity Restrictions/Additional Instructions: *You have been diagnosed with [vomiting * As we discussed your history and physical exam as well as labs and imaging are very reassuring. There is no evidence of any severe diagnoses that would require a specific or immediate intervention. *What to do: *Please continue to take your regular medications as directed. [x ] New medication prescriptions sent to your pharmacy: [ [facility]] *Please follow up with your primary care provider in 2-3 days, call for an appointment. Let them know you were seen in the Emergency Department and that we ask that you be seen in follow up. We will electronically transmit a record of today's note if your PCP is in our system *Please consider a clear liquid diet for the next 24-48 hours and then slowly advance to regular as tolerated. Also, try to avoid alcohol, nicotine, caffeine, spicy, acidic or fatty foods as this may worsen your symptoms *If you do not have a primary care provider please contact the [facility] Resource line at [phone]. They will ask some questions about your medical history and help get you set up with a doctor in the community. *Return to Emergency Department if you should have any new, worsening or concerning symptoms, such as [fever greater than 101 F, shaking chills, worsening pain, persistent vomiting or other bothersome symptoms] Prescriptions: New pantoprazole [Protonix] 40 mg tablet,delayed release (DR/EC) 40 mg PO DAILY Qty: 30 0RF No Action ondansetron 4 mg tablet,disintegrating 4 mg PO Q8H PRN (Reason: nausea and vomiting) Qty: 20 0RF promethazine 25 mg suppository 25 mg WI Q6H PRN (Reason: nausea and vomiting) Qty: 12 0RF ondansetron 4 mg tablet,disintegrating 4 mg PO Q8H PRN (Reason: nausea and vomiting) Qty: 10 0RF ondansetron 4 mg tablet,disintegrating 4 mg PO Q8H PRN (Reason: nausea and vomiting) Qty: 14 0RF metoclopramide HCl [Reglan] 10 mg tablet 10 mg PO Q6H PRN (Reason: nausea and vomiting) Qty: 14 0RF Referrals: Cherelle George MD [Primary Care Provider] - Stand Alone Forms: Patient Portal/API
[2023-04-01] MEDS: SODIUM CHLORIDE 0.9% 1,000 ML 1000 ML IV (01:35)
[2023-04-01 01:56] LABS: Add Manual Diff / Slide Review NO; Basophils Absolute Auto 100 /uL (0-100); Basophils Percent Auto 0.7 % (0-2); Eosinophils Absolute Auto 100 /uL (0-450); Eosinophils Percent Auto 1.7 % (2-4); Hematocrit 38.1 % (36-46); Hemoglobin 12.9 g/dL (12.0-16.0); Lymphocytes Absolute Auto 2500 /uL (1100-4500); Lymphocytes Percent Auto 30.8 % (25-40); Mean Corpuscular HGB Conc 33.9 % (30-36); Mean Corpuscular Hemoglobin 29.1 PG (26-34); Mean Corpuscular Volume 85.8 fL (80-100); Monocytes Absolute Auto 600 /uL (0-900); Monocytes Percent Auto 7.6 % (3-14); Neutrophils Absolute Auto 4800 /uL (1500-7000); Neutrophils Percent Auto 59.2 % (50-75); Platelet Count 206 X10^3/uL (150-400); Red Blood Cell Count 4.44 X10^6/uL (4.0-5.2); Red Cell Distribution Width 13.9 % (11.6-14.8); White Blood Cell Count 8.1 X10^3/uL (4.5-11.0)
[2023-04-01 02:02] LABS: Alanine Aminotransferase 18 IU/L (<35); Albumin 4.5 g/dL (3.5-5.0); Albumin Globulin Ratio 1.4 (1.0-2.8); Alkaline Phosphatase 46 U/L (38-126); Aspartate Aminotransferase 26 IU/L (14-36); BUN Creatinine Ratio 16.9 (6-22); Bilirubin Total 0.7 mg/dL (0.2-1.3); Blood Urea Nitrogen 12 mg/dL (7-17); Calcium 8.9 mg/dL (8.4-10.2); Carbon Dioxide 23 mmol/L (22-32); Chloride 105 mmol/L (98-107); Estimated Glomerular Filt Rate > 60 mL/min (>60); Globulin 3.2 g/dL (1.7-4.1); Glucose 94 mg/dL (70-100); HEMOLYSIS < 15 (0-50); Lipase 68 U/L (23-300); Potassium 3.7 mmol/L (3.4-5.1); Sodium 139 mmol/L (137-145); Total Protein 7.7 g/dL (6.3-8.2)
== END 2023-04-01 03:30 | disposition home or self-care (01) ==
PROVIDERS: Emergency Provider Emergency Medicine; PCP Family Medicine
DX: R11.2 Nausea with vomiting, unspecified (principal)
CPT/HCPCS: 36415; 80053; 81003; 83690; 85025; 96360; 99284

== ENCOUNTER 2023-05-20 02:02 | Emergency (ER) | payer OTHER, SELFPAY ==
[2023-05-20 02:10] VITALS: BP 150/90; PULSE 86; RESP 18; TEMP 36.6; O2SAT 100; BMI 37.8
[2023-05-20 02:20] LABS: Add Manual Diff / Slide Review NO; Basophils Absolute Auto 100 /uL (0-100); Basophils Percent Auto 1.3 % (0-2); Eosinophils Absolute Auto 200 /uL (0-450); Eosinophils Percent Auto 2.5 % (2-4); Hematocrit 39.4 % (36-46); Hemoglobin 13.5 g/dL (12.0-16.0); Lymphocytes Absolute Auto 3500 /uL (1100-4500); Lymphocytes Percent Auto 34.9 % (25-40); Mean Corpuscular HGB Conc 34.3 % (30-36); Mean Corpuscular Hemoglobin 28.7 PG (26-34); Mean Corpuscular Volume 83.8 fL (80-100); Monocytes Absolute Auto 800 /uL (0-900); Neutrophils Absolute Auto 5400 /uL (1500-7000); Neutrophils Percent Auto 53.3 % (50-75); Platelet Count 245 X10^3/uL (150-400); Red Cell Distribution Width 13.5 % (11.6-14.8); White Blood Cell Count 10.1 X10^3/uL (4.5-11.0)
[2023-05-20] MEDS: ONDANSETRON 4 MG/2 ML INJ IV (02:26)
[2023-05-20] MEDS: PANTOPRAZOLE 40 MG VIAL IV (02:26)
[2023-05-20] MEDS: SODIUM CHLORIDE 0.9% 1,000 ML 1000 ML IV (02:26)
[2023-05-20 02:31] LABS: Alanine Aminotransferase 19 IU/L (<35); Albumin 4.6 g/dL (3.5-5.0); Albumin Globulin Ratio 1.3 (1.0-2.8); Alkaline Phosphatase 39 U/L (38-126); Aspartate Aminotransferase 22 IU/L (14-36); BUN Creatinine Ratio 23.7 (6-22); Bilirubin Total 0.1 mg/dL (0.2-1.3); Blood Urea Nitrogen 14 mg/dL (7-17); Calcium 9.5 mg/dL (8.4-10.2); Carbon Dioxide 22 mmol/L (22-32); Chloride 104 mmol/L (98-107); Estimated Glomerular Filt Rate > 60 mL/min (>60); Globulin 3.5 g/dL (1.7-4.1); Glucose 95 mg/dL (70-100); HEMOLYSIS 17 (0-50); Lipase 109 U/L (23-300); Sodium 139 mmol/L (137-145); Total Protein 8.1 g/dL (6.3-8.2)
[2023-05-20 02:32] VITALS: PULSE 78; O2SAT 98
[2023-05-20 02:33] VITALS: BP 115/67; PULSE 74; RESP 20; O2SAT 98
[2023-05-20 03:00] VITALS: PULSE 78; RESP 29; O2SAT 98
--- NOTE | 2023-05-20 03:10 | ED_ITS ---
HPI - Nausea/Vomiting/Diarrhea General Chief complaint: Nausea/Vomiting/Diarrhea Stated complaint: THROWING UP, DARK BROWN STUFF IN IT Time Seen by Provider: 05/20/23 02:12 Source: patient Mode of arrival: Ambulatory History of Present Illness HPI Narrative: Patient is a 22-year-old female with history of chronic nausea and vomiting history of POTS and PANDA syndrome who presents today with vomiting up brown stuff. She reports that she throws up at least once daily she is been taking Zofran daily. She is had an EGD she is had lots of workup she chronically has this. Tonight however she reports that she threw up brown stuff which was different. She was concerned it might be blood she is having some epigastric pain which is a little bit more than. She does have Phenergan suppositories at home which she was instructed to stop secondary to anal fissures. No dizziness or lightheadedness. She took Zofran at home it is really not working but does make the symptoms subsided some. Fever or chills. No lower abdominal pain. Related Data Previous Rx's Medication Instructions Recorded ondansetron 4 mg disintegrating 4 mg PO Q8H PRN nausea and 02/19/23 tablet vomiting #20 tabs ondansetron 4 mg disintegrating 4 mg PO Q8H PRN nausea and 02/23/23 tablet vomiting #14 tabs ondansetron 4 mg disintegrating 4 mg PO Q8H PRN nausea and 02/25/23 tablet vomiting #10 tabs promethazine 25 mg rectal 25 mg [place] Q6H PRN nausea and 02/25/23 suppository vomiting #12 ea metoclopramide HCl 10 mg tablet 10 mg PO Q6H PRN nausea and 03/27/23 (Reglan) vomiting #14 tabs pantoprazole 40 mg tablet,delayed 40 mg PO DAILY #30 tabs 04/01/23 release (Protonix) Allergies Allergy/AdvReac Type Severity Reaction Status Date / Time No Known Drug Allergies Allergy Verified 02/23/23 16:04 Patient History Social History Smoking Status: Former smoker Smoking Status: Former smoker tobacco type: cigarettes and vaping Substance Use Type: marijuana Exam Initial Vital Signs Initial Vital Signs: Vital Signs Temperature 98 F 05/20/23 02:10 Pulse Rate 86 05/20/23 02:10 Respiratory Rate 18 05/20/23 02:10 Blood Pressure 150/90 H 05/20/23 02:10 Pulse Oximetry 100 05/20/23 02:10 Oxygen Delivery Method Room Air 05/20/23 02:10 GENERAL: Alert well-appearing 22-year-old female HEENT: Head atraumatic,EOMI, pupils reactive, face symmetric, moist mucous membranes CARDIOVASCULAR: Regular rate and rhythm without murmurs, rubs or gallops. RESPIRATORY: Breath sounds equal bilaterally, no wheezes rales or rhonchi. ABDOMEN: Soft, nontender. Normoactive bowel sounds all 4 quadrants. No guarding or rebound. Negative Espinoza's sides some epigastric pain EXTREMITIES: Normal range of motion, no clubbing or edema. Neurovascularly intact NEUROLOGICAL: Alert and oriented x4.Normal gait and speech. SKIN: Warm, dry, no laceration, no petechiae, no rashes or lesions. Course Orders Ordered: ED Orders 05/20/23 02:15 Complete Blood Count AUTO DIFF Stat Comprehensive Metabolic Panel Stat Lipase Stat Discontinued Medications Sodium Chloride (Normal Saline 0.9%) 1,000 mls @ 1,000 mls/hr IV BOLUS ONE Stop: 05/20/23 03:11 Last Infusion: 05/20/23 03:51 Dose: Infused Documented By: Admin: 05/20/23 02:26 Dose: 1,000 mls/hr Documented By: ALICIA Ketorolac Tromethamine (Ketorolac 30 Mg/Ml Vial) 15 mg IV NOW ONE Stop: 05/20/23 03:12 Last Admin: 05/20/23 03:37 Dose: 15 mg Documented By: MARK Ondansetron HCl (Ondansetron 4 Mg/2 Ml Inj) 4 mg IV NOW ONE Stop: 05/20/23 02:13 Last Admin: 05/20/23 02:26 Dose: 4 mg Documented By: ALICIA Pantoprazole Sodium (Pantoprazole 40 Mg Vial) 40 mg IV NOW ONE Stop: 05/20/23 02:13 Last Admin: 05/20/23 02:26 Dose: 40 mg Documented By: ALICIA Vital Signs Vital signs: Vital Signs - 8 hr 05/20/23 02:10 05/20/23 02:32 05/20/23 02:33 Temperature 98 F Pulse Rate 86 78 74 Respiratory Rate 18 20 Blood Pressure 150/90 H Pulse Oximetry 100 98 98 Oxygen Delivery Method Room Air 05/20/23 02:33 05/20/23 03:00 05/20/23 03:30 Temperature Pulse Rate 78 73 Respiratory Rate 29 H 19 Blood Pressure 115/67 Pulse Oximetry 98 98 Oxygen Delivery Method 05/20/23 03:30 Temperature Pulse Rate Respiratory Rate Blood Pressure 114/64 Pulse Oximetry Oxygen Delivery Method MDM - Nausea/Vomiting/Diarrhea Lab Data 05/20/23 02:15 05/20/23 02:15 Labs: Lab Results 05/20/23 Range/Units 02:15 WBC 10.1 (4.5-11.0) X10^3/uL RBC 4.70 (4.0-5.2) X10^6/uL Hgb 13.5 (12.0-16.0) g/dL Hct 39.4 (36-46) % MCV 83.8 (80-100) fL MCH 28.7 (26-34) PG MCHC 34.3 (30-36) % RDW 13.5 (11.6-14.8) % Plt Count 245 (150-400) X10^3/uL Neut % (Auto) 53.3 (50-75) % Lymph % (Auto) 34.9 (25-40) % [place] % (Auto) 8.0 (3-14) % Eos % (Auto) 2.5 (2-4) % Baso % (Auto) 1.3 (0-2) % Neut # (Auto) 5400 (3732-3186) /uL Lymph # (Auto) 3500 (2963-8079) /uL [place] # (Auto) 800 (0-900) /uL Eos # (Auto) 200 (0-450) /uL Baso # (Auto) 100 (0-100) /uL Sodium 139 (137-145) mmol/L Potassium 4.0 (3.4-5.1) mmol/L Chloride 104 (98-107) mmol/L Carbon Dioxide 22 (22-32) mmol/L BUN 14 (7-17) mg/dL Creatinine 0.59 (0.52-1.04) mg/dL Estimated GFR > 60 (>60) mL/min BUN/Creatinine Ratio 23.7 H (6-22) Glucose 95 (70-100) mg/dL Calcium 9.5 (8.4-10.2) mg/dL Total Bilirubin 0.1 L (0.2-1.3) mg/dL AST 22 (14-36) IU/L ALT 19 (<35) IU/L Alkaline Phosphatase 39 (38-126) U/L Total Protein 8.1 (6.3-8.2) g/dL Albumin 4.6 (3.5-5.0) g/dL Globulin 3.5 (1.7-4.1) g/dL Albumin/Globulin Ratio 1.3 (1.0-2.8) Lipase 109 (23-300) U/L Point of Care Testing Test Results Negative Urine Dip Bedside Urine Glucose Negative Bedside Urine Bilirubin - Negative Bedside Urine Ketone - Negative Urine Specific [place] 1.015 Bedside Urine Occult Blood - Negative Bedside Urine pH 6 Bedside Urine Protein - Negative Bedside Urine Urobilinogen - Negative Bedside Urine Nitrite - Negative Bedside Urine Leukocytes - Negative Esterase MDM Narrative Medical decision making narrative: Patient 22-year-old female was chronic nausea vomiting presenting today with vomiting and some possible coffee-ground like emesis. I think this is more likely bile she is no longer vomiting. Blood work been reviewed normal hemoglobin no electrolyte abnormality. She is on Protonix twice a day. She has good outpatient follow-up. Vitals are stable. She is tolerating fluids. Discharge Plan Departure Patient Disposition: Home Clinical Impression: Nausea & vomiting Instructions: DI for Vomiting -- Adult Activity Restrictions/Additional Instructions: *You have been diagnosed with nausea vomiting *What to do: At this time no evidence of vomiting blood sometimes bile can look like blood. Your blood work is reassuring. *Continue to take medications as directed Continue anti nausea medications as directed *Follow up with your primary care provider in 2-3 days or call [phone] Please follow-up with GI as needed *Return to ER if you should have persistent nausea vomiting dizziness lightheadedness passing out or any new, worsening or concerning symptoms Prescriptions: No Action ondansetron 4 mg tablet,disintegrating 4 mg PO Q8H PRN (Reason: nausea and vomiting) Qty: 20 0RF promethazine 25 mg suppository 25 mg HI Q6H PRN (Reason: nausea and vomiting) Qty: 12 0RF ondansetron 4 mg tablet,disintegrating 4 mg PO Q8H PRN (Reason: nausea and vomiting) Qty: 10 0RF pantoprazole [Protonix] 40 mg tablet,delayed release (DR/EC) 40 mg PO DAILY Qty: 30 0RF ondansetron 4 mg tablet,disintegrating 4 mg PO Q8H PRN (Reason: nausea and vomiting) Qty: 14 0RF metoclopramide HCl [Reglan] 10 mg tablet 10 mg PO Q6H PRN (Reason: nausea and vomiting) Qty: 14 0RF Referrals: Cherelle George MD [Primary Care Provider] - Stand Alone Forms: Patient Portal/API
[2023-05-20 03:30] VITALS: BP 114/64; PULSE 73; RESP 19; O2SAT 98
[2023-05-20] MEDS: KETOROLAC 30 MG/ML VIAL 15 MG IV (03:37)
== END 2023-05-20 03:51 | disposition home or self-care (01) ==
PROVIDERS: Emergency Provider Emergency Medicine; PCP Family Medicine
DX: R11.2 Nausea with vomiting, unspecified (principal); R10.13 Epigastric pain
CPT/HCPCS: 36415; 80053; 81003; 81025; 83690; 85025; 96361; 96374; 96375; 99284; C9113; J1885; J2405

== ENCOUNTER 2023-09-13 20:46 | Emergency (ER) | payer OTHER, SELFPAY ==
[2023-09-13 20:48] VITALS: BP 170/112; PULSE 104; RESP 18; TEMP 37.1; O2SAT 98; BMI 47.5
--- NOTE | 2023-09-13 21:12 | DI.US.S_ITS ---
PROCEDURE: US PERIPH VENOUS UP EXTREM LT INDICATIONS: r/o DVT, hx of factor 5 TECHNIQUE: Real-time imaging, as well as color and pulse Doppler interrogation, was performed of the upper extremity deep veins from the inferior neck to the antecubital fossa. COMPARISON: None. FINDINGS: The internal jugular vein, visualized portions of the subclavian vein, axillary, and brachial veins are free of intraluminal thrombus. Where physically possible, the veins are normally compressible. Color and pulse Doppler demonstrate normal intraluminal flow, with expected phasicity and pulsatility. Additional scanning of the cephalic and basilic veins of the superficial system demonstrates normal compressibility, without thrombus. IMPRESSION: No findings of upper extremity deep venous thrombosis can be seen. Dictated by: Emre Coppola M.D. on 09/13/2023 at 22:04 Approved by: Emre Coppola M.D. on 09/13/2023 at 22:05
--- NOTE | 2023-09-13 22:49 | ED_ITS ---
HPI - Extremity Problem General Chief complaint: Extremity Problem,Nontraumatic Stated complaint: left arm swelling and pain Time Seen by Provider: 09/13/23 22:49 Source: patient Mode of arrival: Ambulatory History of Present Illness HPI Narrative: 23-year-old female history of factor 5 Leiden. Presents complaint of triceps discomfort with little bit of color change to her left upper extremity. Patient states pain sort of radiates down her arm a little bit. She states she did do a triceps workup she describes it as light on Thursday. She states nothing atypical. She woke up this morning and just felt a fullness and felt like her arm was a little bit swollen and discolored on the left side. Patient states no numbness tingling or weakness. She is full range of motion. States little bit more uncomfortable to bend at the elbow. No paresthesias reported. No fevers or chills. No chest pain or shortness of breath. No nausea or vomiting. No GI or urinary symptoms otherwise. Patient states she has not unofficial pots diag nosis, she is on mirtazapine daily and has a muscle relaxer PRN. States no recent surgeries. No known drug allergies. Former smoker, vape cigarettes, uses marijuana no IV drugs. Has a Nexplanon in place. She is accompanied by her . Related Data Previous Rx's Medication Instructions Recorded ondansetron 4 mg disintegrating 4 mg PO Q8H PRN nausea and 02/19/23 tablet vomiting #20 tabs ondansetron 4 mg disintegrating 4 mg PO Q8H PRN nausea and 02/23/23 tablet vomiting #14 tabs ondansetron 4 mg disintegrating 4 mg PO Q8H PRN nausea and 02/25/23 tablet vomiting #10 tabs promethazine 25 mg rectal 25 mg AZ Q6H PRN nausea and 02/25/23 suppository vomiting #12 ea metoclopramide HCl 10 mg tablet 10 mg PO Q6H PRN nausea and 03/27/23 (Reglan) vomiting #14 tabs pantoprazole 40 mg tablet,delayed 40 mg PO DAILY #30 tabs 04/01/23 release (Protonix) Allergies Allergy/AdvReac Type Severity Reaction Status Date / Time No Known Drug Allergies Allergy Verified 09/13/23 20:48 Review of Systems Review of Systems ROS Unobtainable: All systems reviewed & are unremarkable except as noted in HPI and below Patient History Social History Smoking Status: Former smoker Smoking Status: Former smoker tobacco type: cigarettes and vaping Substance Use Type: marijuana Exam Narrative Exam Narrative: GENERAL: Alert and oriented x three, female in no acute distress. HEENT: Head normocephalic, atraumatic, EOMI, pupils reactive, face symmetric, moist mucous membranes NECK: Supple, full range of motion CARDIOVASCULAR: Regular rate and rhythm without murmurs, rubs or gallops. RESPIRATORY: Breath sounds equal bilaterally, no wheezes rales or rhonchi. ABDOMEN: Soft, nontender. Normoactive bowel sounds all 4 quadrants. No guarding or rebound, rigidity, no mass : No CVA tenderness EXTREMITIES: Normal range of motion, no clubbing or edema. Neurovascularly intact. 2+ radial pulses bilaterally. Full range of motion. 5/5 muscle strength with aeronautical engineering officer equal bilaterally. Sensation intact throughout. Arm is soft, slight discoloration left in comparison to right but cap refill is equal bilaterally. NEUROLOGICAL: Cranial nerves II through XII grossly intact. Moving all extremities SKIN: Warm, dry, no petechiae, no rashes or lesions. Initial Vital Signs Initial Vital Signs: Vital Signs Temperature 98.7 F 09/13/23 20:48 Pulse Rate 104 H 09/13/23 20:48 Respiratory Rate 18 09/13/23 20:48 Blood Pressure 170/112 H 09/13/23 20:48 Pulse Oximetry 98 09/13/23 20:48 Oxygen Delivery Method Room Air 09/13/23 20:48 Course Orders Ordered: ED Orders 09/13/23 21:12 US periph venous up extrem lt Stat Vital Signs Vital signs: Vital Signs - 8 hr 09/13/23 20:48 09/13/23 23:07 Temperature 98.7 F 98.3 F Pulse Rate 104 H 97 H Respiratory Rate 18 16 Blood Pressure 170/112 H 140/64 Pulse Oximetry 98 97 Oxygen Delivery Method Room Air Room Air MDM - Extremity (Nontraumatic) Imaging Data US - DVT: Radiologist's Impression: [address] [address] Ultrasound Report Signed Patient: Wendy Branch MR#: [id number] : 2000 Acct:[id number] Age/Sex: 23 / F Date of Service: 09/13/23 Loc: ED Accession Number: [id number] Procedure: perip venous up extrem lt Ordering Provider: Lyssa Platt D.O. PROCEDURE: PERIP VENOUS UP EXTREM LT INDICATIONS: r/o DVT, hx of factor 5 TECHNIQUE: Real-time imaging, as well as color and pulse Doppler interrogation, was performed of the upper extremity deep veins from the inferior neck to the antecubital fossa. COMPARISON: None. FINDINGS: The internal jugular vein, visualized portions of the subclavian vein, axillary, and brachial veins are free of intraluminal thrombus. Where physically possible, the veins are normally compressible. Color and pulse Doppler demonstrate normal intraluminal flow, with expected phasicity and pulsatility. Additional scanning of the cephalic and basilic veins of the superficial system demonstrates normal compressibility, without thrombus. IMPRESSION: No findings of upper extremity deep venous thrombosis can be seen. Dictated by: Emre Coppola M.D. on 09/13/2023 at 22:04 Approved by: Emre Coppola M.D. on 09/13/2023 at 22:05 [facility] Narrative Medical decision making narrative: 23-year-old female with complaint of some swelling and discoloration of left upper extremity with known history of factor 5 Leiden. Patient is slightly tachycardic but hypertensive afebrile. Exam shows no bony tenderness no recent trauma did have a workout on Thursday doing triceps but states it was mild. Patient neurologic exam, vascular exam is overall reassuring. Possible swelling left compared to right. DVT ultrasound was ordered in his negative. Discussed return precautions with patient. Discharge Plan Departure Patient Disposition: Home Clinical Impression: Arm pain, left Activity Restrictions/Additional Instructions: Follow up for recheck if symptoms are persisting or worsening. Your DVT ultrasound today is negative. Please return for rapidly worsening pain, new loss of sensation, weakness, if your arm is pale or blue, if you have any signs of redness, swelling or infection or other new or concerning changes. Prescriptions: No Action ondansetron 4 mg tablet,disintegrating 4 mg PO Q8H PRN (Reason: nausea and vomiting) Qty: 20 0RF promethazine 25 mg suppository 25 mg AZ Q6H PRN (Reason: nausea and vomiting) Qty: 12 0RF ondansetron 4 mg tablet,disintegrating 4 mg PO Q8H PRN (Reason: nausea and vomiting) Qty: 10 0RF pantoprazole [Protonix] 40 mg tablet,delayed release (DR/EC) 40 mg PO DAILY Qty: 30 0RF ondansetron 4 mg tablet,disintegrating 4 mg PO Q8H PRN (Reason: nausea and vomiting) Qty: 14 0RF metoclopramide HCl [Reglan] 10 mg tablet 10 mg PO Q6H PRN (Reason: nausea and vomiting) Qty: 14 0RF Referrals: Cherelle George MD [Primary Care Provider] - Stand Alone Forms: Patient Portal/API
[2023-09-13 23:07] VITALS: BP 140/64; PULSE 97; RESP 16; TEMP 36.8; O2SAT 97
== END 2023-09-13 23:09 | disposition home or self-care (01) ==
PROVIDERS: Emergency Provider Emergency Medicine; PCP Family Medicine
DX: M79.622 Pain in left upper arm (principal); R22.32 Localized swelling, mass and lump, left upper limb
CPT/HCPCS: 93971; 99281; 99282